=== PATIENT | male | born 1960 | race Caucasian/White ===

== ENCOUNTER 2017-05-31 06:24 | Day surgery (SDC) | payer OTHER ==
[2017-05-25 13:29] VITALS: BMI 28.1
[2017-05-31] MEDS ORDERED: SUCCINYLCHOLINE CHLORIDE 200 MG/10 ML VIAL ONE (06:42)
[2017-05-31] MEDS ORDERED: PROPOFOL 20 ML ONE ×2 (06:42)
[2017-05-31] MEDS ORDERED: MIDAZOLAM HCL 2 MG/2 ML SINGLE DOSE VIAL ONE (06:42)
[2017-05-31] MEDS ORDERED: DEXAMETHASONE SOD PHOSPHATE 4 MG/1 ML VIAL ONE (06:43)
[2017-05-31] MEDS ORDERED: ONDANSETRON 4 MG/2 ML VIAL ONE (06:43)
[2017-05-31] MEDS ORDERED: ceFAZolin SODIUM 1 GM VIAL ONE (06:43)
[2017-05-31] MEDS ORDERED: MEPIVACAINE HCL/PF 1% 30 ML VIAL ONE (06:56)
[2017-05-31] MEDS ORDERED: LIDOCAINE 1% P/F 10 MG/ML VIAL ONE (06:56)
[2017-05-31] MEDS ORDERED: ROPIVACAINE HCL 0.5% 30ML VIAL ONE (06:57)
--- NOTE | 2017-05-31 07:20 | HP ---
History & Physical Update - History History: No Change - Physical Physical: No Change - Assessment Assessment: No Change - Plan Plan: No Change
[2017-05-31] MEDS ORDERED: PHENYLEPHRINE HCL 10 MG/1 ML SINGLE DOSE VIAL ONE (08:41)
[2017-05-31] MEDS ORDERED: oxyCODONE HCL 5 MG TABLET PO PRN (10:16)
[2017-05-31] MEDS ORDERED: KETOROLAC TROMETHAMINE 30 MG/1 ML VIAL IVPUSH ONE (10:17)
--- NOTE | 2017-05-31 10:17 | SURG ---
Surgery Bulk Filler Note Bulk Filler: Estefany Ventura PA-C Date of Service: 05/31/17 Diagnosis: Right rotator cuff tear, Biceps tear Procedure: Right shoulder arthroscopy with rotator cuff repair, sub acrominal decompression , biceps tenodesis and subscapularis repair. I was present for the entirety of the operative procedure. For further detail, please refer to operative report. Visit type - Case Type Case Type: Scheduled Admission - Emergency Emergency Visit: No - New patient This patient is new to me today: Yes Date on this admission: 05/31/17
--- NOTE | 2017-05-31 10:18 | OP ---
Operative Note - Note: Operative Date: 05/31/17 Pre-Operative Diagnosis: r sh tear Operation: scope Estimated Blood Loss (mls): 10 Operative Report Dictated: Yes
[2017-05-31] MEDS ORDERED: LACTATED RINGERS SOLUTION 1,000 ML IV SCH (10:30)
[2017-05-31 11:29] VITALS: TEMP 98
[2017-05-31] MEDS ORDERED: CEFAZOLIN 1 GM/D5W 50 ML ONE (11:55)
[2017-05-31] MEDS ORDERED: CEFAZOLIN 1 GM/D5W 50 ML IVPB SCH ×2 (12:00)
[2017-05-31 14:13] VITALS: BP 124/73; PULSE 71
--- NOTE | 2017-06-01 09:18 | OP ---
DATE OF OPERATION: 05/31/2017 SURGEON: Carmina Davalos MD JOB ORDER CLERK: YOJANA Allison ANESTHESIA: General with block, . ANTIBIOTIC: Kefzol 2 g. COMPLICATIONS: None. WOUND TYPE: Clean. SPECIMENS: Shavings. DRAINS: None. BLOOD LOSS: Minimal. FINDINGS: See text. PREOPERATIVE DIAGNOSIS: Internal derangement of right shoulder. POSTOPERATIVE DIAGNOSIS: Massive rotator cuff tear, anterior capsular avulsion with subscapularis biceps tear, labral tear, AC arthritis, impingement of the subacromial space. PROCEDURE PERFORMED: Rotator cuff repair, anterior capsular repair with subscapularis, biceps tenodesis, labrectomy, acromioclavicular arthroplasty, arthroscopic subacromial decompression. INDICATIONS: The patient has sustained a severe injury to the shoulder that did not improve despite conservative measures. Risks and benefits were able to be explained and understood. MRI was positive. He is here for arthroscopic evaluation and treatment. DESCRIPTION OF PROCEDURE: The patient was brought to the operating room, placed on the table in the beach-chair position. Proper time-out was performed. The right shoulder was prepped and draped with Betadine. Solution antibiotics were given. EUA was remarkable for multidirectional instability. Getting into the shoulder, all the above findings were noted. In addition, he had a degenerative GLAD lesion. However, there was no instability due to this, and there was no drive-through sign, and he had articular surface changes, which were grade 3-4. This was debrided. The subscapularis was torn. The anterior capsule was torn off the humeral neck. There were high grade changes in the biceps. We could look right up into the subacromial space through the rotator cuff tear. There was degenerative tearing posteriorly. Labrectomy: We did a large labrectomy for tears posteriorly, inferiorly, and anteriorly, which were interposing and likely symptomatic explaining the high-speed hannah. Biceps Tenodesis: The biceps was detached from the supraglenoid tubercle. We had externally created an 8-mm socket, debrided the biceps, opened the groove entirely, placed the biceps within the socket, tenodesed it here securely using the 8-mm Tenodesis Screw supplied by [employer]. Anterior Capsular Repair: Getting back into the shoulder, we used a portal of Lawrence and an anterolateral portal, and had excellent access to the subscapularis, which was completely torn. We debrided in both sides, and we had good access. We also had tearing of the capsule below this off the humeral neck. This was a proximal HAGL lesion. We prepared the bony surfaces using a high-speed shaver, and then repaired here using Nautilus anchors. We used the Q 1.8 by [employer] and had an excellent repair, both the capsule and the subscapularis onto the neck and the prepared lesser tuberosity respectively. We had excellent stability here. Rotator Cuff Repair: We had a large displaced tear of the rotator cuff involving the entire supra- and infraspinatus. We debrided back to good tissue. This was an L posterior tear. We prepared the juxta-articular surface of the greater tuberosity at the punctate bleeding bone. We now placed our medial row anchor which was a triple-loaded Regenerex 5.5. We passed posterior mattress, middle simple, and an anterior mattress. We then tied these on securely. We then did a double second row using two 4.5 via [employer]. We were pleased with cuff contact pressure and stability. Acromioclavicular arthroplasty. We now performed a formal arthroscopic Praveen procedure resecting the entire distal aspect of the clavicle. The outer 11 mm were taken using bone instruments. Arthroscopic Subacromial Decompression: We now took down the CA ligament, did a bi-planing acromioplasty for a significant anteromedial hook. This smoothed things out completely. We checked the cuff. It was good. We had good stability. We had full passive rate. We closed the portals with Monocril. Dressing was applied. He returned to Recovery. He will be discharged to home with shoulder sheath and Percocet for pain. I will see him in the office for followup in 1 week. CARMINA DAVALOS M.D. [id number]
--- NOTE | 2017-06-01 16:41 | PATH ---
Surgical Pathology Report Patient Name: SHANIQUE MCKAY [facility]. Rec. #: [id number] /Age/Gender: 1960 (Age: 56) / M Account: [id number] Location: [facility] AMBULATORY Taken: 05/31/2017 Received: 05/31/2017 Reported: 06/01/2017 Physicians: Anjel Paris M.D. Specimen(s) Received RIGHT SHOULDER SHAVINGS Clinical History Right shoulder rotator cuff repair Final Diagnosis SHOULDER SHAVINGS, RIGHT, SUBACROMIAL DECOMPRESSION, AND ROTATOR CUFF REPAIR: BENIGN FIBROCARTILAGINOUS TISSUE, SYNOVIUM, AND BONE. Electronically Signed Cindy Sol M.D. Gross Description Received in formalin, labeled "right shoulder shavings," is a 4.0 x 3.2 x 0.3 cm. aggregate of crowe-yellow soft tissue fragments. A uniforms sales representative portion is submitted in one cassette. /05/31/201705/31/2017
== END 2017-05-31 14:14 | disposition home or self-care (01) ==
LOC: FASU 06:24
PROVIDERS: ATTEND Orthopaedic Surgery
PROC: 0LS14ZZ Reposition Right Shoulder Tendon, Percutaneous Endoscopic Approach (ICD-10-PCS; 2017-05-31)
PROC: 0RNJ4ZZ Release Right Shoulder Joint, Percutaneous Endoscopic Approach (ICD-10-PCS; 2017-05-31)
PROC: 0RBJ4ZZ Excision of Right Shoulder Joint, Percutaneous Endoscopic Approach (ICD-10-PCS; 2017-05-31)
PROC: 0LB14ZZ Excision of Right Shoulder Tendon, Percutaneous Endoscopic Approach (ICD-10-PCS; principal; 2017-05-31 08:29)
DX: M75.121 Complete rotator cuff tear or rupture of right shoulder, not specified as traumatic (principal); M66.821 Spontaneous rupture of other tendons, right upper arm; M24.111 Other articular cartilage disorders, right shoulder; M13.811 Other specified arthritis, right shoulder; M75.41 Impingement syndrome of right shoulder
CPT/HCPCS: 88304-TC

== ENCOUNTER 2017-09-19 15:27 | Emergency (ER) | payer BC, OTHER ==
[2017-09-19 15:46] VITALS: BP 169/98; PULSE 60; TEMP 98.7; BMI 27.9
--- NOTE | 2017-09-19 15:59 | PDOC ---
History of Present Illness - General History Source: Patient Exam Limitations: No Limitations - History of Present Illness Initial Comments: 09/19/17 16:19 56m WITH PMH of htn and GERD, who presents to the emergency department with, two hours of epigastric pain. As per patient he ate spicy ceviche when his symptoms onset. He describes his pain as 10/10 burning sensation moving upward. He reports using his GERD medication, without relief. Secondary to her symptoms, he reports nausea. The patient reports this is not his first episode. He had similar symptoms a few years ago. He denies any recent fevers, chills, headache or dizziness. He denies any recent diarrhea or constipation. He denies any recent chest pain or shortness of breath. He denies any recent dysuria, frequency, urgency or hematuria. Allergies: NKA Social History: Nonsmoker. Denies EtOH use and recreational drug use. Primary Care Physician: Dr. Kim Jaime <Joe Cox - Last Filed: 09/19/17 19:22> <Celeste Iglesias - Last Filed: 09/19/17 19:53> - General Chief Complaint: Pain, Acute Stated Complaint: ABD PAIN Time Seen by Provider: 09/19/17 15:58 Past History - Past Medical History Anemia: No Asthma: No Cancer: No Cardiac Disorders: No CVA: No COPD: No CHF: No Dementia: No Diabetes: No GI Disorders: No Disorders: No HTN: Yes Hypercholesterolemia: Yes Liver Disease: No Seizures: No Thyroid Disease: No - Surgical History Abdominal Surgery: No Appendectomy: No Cardiac Surgery: No Cholecystectomy: No Lung Surgery: No Neurologic Surgery: No Orthopedic Surgery: Yes (LUMBAR DISCECTOMY 1986) - Suicide/Smoking/Psychosocial Hx Smoking History: Never smoked Have you smoked in the past 12 months: No Hx Alcohol Use: No Substance Use Type: None <Joe Cox - Last Filed: 09/19/17 19:22> <Celeste Iglesias - Last Filed: 09/19/17 19:53> - Past Medical History Allergies/Adverse Reactions: Allergies Allergy/AdvReac Type Severity Reaction Status Date / Time No Known Drug Allergies Allergy Verified 09/19/17 15:44 Home Medications: Ambulatory Orders Cholecalciferol (Vitamin D3) [Vitamin D3] 5,000 unit PO DAILY 05/25/17 Lisinopril 10 mg PO DAILY 05/25/17 Multivitamins [Tab-A-Vit -] 1 tab PO DAILY 05/25/17 Simvastatin 20 mg PO HS 05/25/17 Review of Systems - Review of Systems Able to Perform ROS?: Yes Is the patient limited Divehi proficient: No Constitutional: No: Symptoms Reported HEENTM: No: Symptoms Reported Respiratory: No: Symptoms reported Cardiac (ROS): No: Symptoms Reported ABD/GI: Yes: See HPI : No: Symptoms Reported Musculoskeletal: No: Symptoms Reported Integumentary: No: Symptoms Reported Neurological: No: Symptoms reported All Other Systems: Reviewed and Negative <Joe Cox - Last Filed: 09/19/17 19:22> *Physical Exam - Vital Signs Last Vital Signs Temp Pulse Resp BP Pulse Ox 98.7 F 60 19 169/98 99 09/19/17 15:44 09/19/17 15:44 09/19/17 15:44 09/19/17 15:44 09/19/17 15:44 - Physical Exam General Appearance: Yes: Nourished, Appropriately Dressed, Moderate Distress HEENT: positive: EOMI, LEONARDO, Normal ENT Inspection Respiratory/Chest: positive: Lungs Clear, Normal Breath Sounds. negative: Chest Tender, Respiratory Distress Gastrointestinal/Abdominal: positive: Normal Bowel Sounds, Tender (URQ and epigastric), Flat, Soft Extremity: positive: Normal Capillary Refill, Normal Inspection, Normal Range of Motion Integumentary: positive: Normal Color, Dry, Warm Neurologic: positive: Fully Oriented, Alert, Normal Mood/Affect <Joe Cox - Last Filed: 09/19/17 19:22> - Vital Signs Last Vital Signs Temp Pulse Resp BP Pulse Ox 98.7 F 60 19 169/98 99 09/19/17 15:44 09/19/17 15:44 09/19/17 15:44 09/19/17 15:44 09/19/17 15:44 <Celeste Iglesias - Last Filed: 09/19/17 19:53> ED Treatment Course - LABORATORY CBC & Chemistry Diagram: 09/19/17 16:25 09/19/17 16:25 <Joe Cox - Last Filed: 09/19/17 19:22> - LABORATORY CBC & Chemistry Diagram: 09/19/17 16:25 09/19/17 16:25 - ADDITIONAL ORDERS Additional order review: Laboratory Results 09/19/17 09/19/17 16:25 16:25 Sodium 136 Potassium 4.9 Chloride 103 Carbon Dioxide 26 Anion Gap 7 L BUN 10 Creatinine 0.9 Creat Clearance w eGFR > 60 Random Glucose 144 H Calcium 9.5 Total Bilirubin 0.8 AST 37 ALT 52 Alkaline Phosphatase 98 Creatine Kinase 119 Troponin I < 0.02 Total Protein 8.0 Albumin 4.6 Lipase 202 09/19/17 16:25 RBC 5.31 MCV 88.3 MCHC 33.6 RDW 12.9 MPV 7.5 Neutrophils % 70.4 Lymphocytes % 23.2 Monocytes % 5.0 Eosinophils % 0.6 Basophils % 0.8 - Medications Given in the ED: ED Medications Discontinued Medications Generic Name Dose Route Start Last Admin Trade Name Freq PRN Reason Stop Dose Admin Al Hydroxide/Mg Hydroxide 30 ml 09/19/17 16:25 09/19/17 17:05 Mylanta Oral Suspension - PO 09/19/17 16:26 30 ml ONCE ONE Administration Sodium Chloride 1,000 mls @ 1,000 mls/hr 09/19/17 16:07 09/19/17 16:26 Normal Saline - IV 09/19/17 17:06 1,000 mls/hr ASDIR STA Administration Famotidine 20 mg in 12 mls @ 144 mls/hr 09/19/17 16:25 09/19/17 17:05 Pepcid 20 Mg/12 Ml Push IVPUSH 09/19/17 16:29 144 mls/hr NOW ONE Administration Lidocaine HCl 20 ml 09/19/17 16:27 09/19/17 17:05 Xylocaine 2% Viscous Oral - MM 09/19/17 16:28 20 ml ONCE ONE Administration Morphine Sulfate 2 mg 09/19/17 17:23 09/19/17 17:27 Morphine Injection - IVPUSH 09/19/17 17:24 2 mg ONCE ONE Administration Ondansetron HCl 4 mg 09/19/17 16:07 09/19/17 16:26 Zofran Injection IVPUSH 09/19/17 16:08 4 mg ONCE ONE Administration Pantoprazole Sodium 40 mg 09/19/17 16:06 09/19/17 16:25 Protonix Iv IVPUSH 09/19/17 16:07 40 mg ONCE ONE Administration <Celeste Iglesias - Last Filed: 09/19/17 19:53> Medical Decision Making - Medical Decision Making Gall stones are present. No definite sign of inflammation. No biliary dilation seen. Liver shows no definite focal mass. The liver is echogenic compatible with steatosis. Right kidney shows no hydronephrosis. Portal vein shows unremarkable venous waveform with hepatopedal flow. EKG: sinus estiven at 47, nl axis, nl interval, t wave inversions III, no other acute findings Patient to receive surgery consult, Signed out to Dr. Rojas <Joe Cox - Last Filed: 09/19/17 19:22> - Medical Decision Making 09/19/17 19:22 Patient Name: SHANIQUE MCKAY PRELIMINARY REPORT FROM IMAGING SORT SUPERVISOR EXAM: Ultrasound abdomen, limited and Duplex scan abdomen DATE: 2017-09-19 17:30:29 IMAGES: 39 HISTORY: Gallstones REPORT: Gall stones are present. No definite sign of inflammation. No biliary dilation seen. Liver shows no definite focal mass. The liver is echogenic compatible with steatosis. Right kidney shows no hydronephrosis. Portal vein shows unremarkable venous waveform with hepatopedal flow. THIS DOCUMENT HAS BEEN ELECTRONICALLY SIGNED 09/19/17 19:52 We discussed the GB situation with the patient, the importance of low fat diet. The need for GI and surgical outpatient follow up. The fact that he may have gastritis and requires an EGD and that the omeprazole he already has can be suppolemented with tums/maalox etc. <Celeste Iglesias - Last Filed: 09/19/17 19:53> *DC/Admit/Observation/Transfer <Joe Cox - Last Filed: 09/19/17 19:22> <Celeste Iglesias - Last Filed: 09/19/17 19:53> Diagnosis at time of Disposition: Nephrolithiasis - Referrals Referrals: Kim Jaime [Primary Care Provider] -
[2017-09-19] MEDS ORDERED: PANTOPRAZOLE SODIUM 40 MG VIAL IVPUSH ONE (16:06)
[2017-09-19] MEDS ORDERED: ONDANSETRON 4 MG/2 ML VIAL IVPUSH ONE (16:07)
[2017-09-19] MEDS ORDERED: SODIUM CHLORIDE 1,000 ML IV STA (16:07)
--- NOTE | 2017-09-19 16:08 | PDOC ---
Attending Attestation - [facility] HPI: 09/19/17 16:53 The patient is a 56 year old male, with a significant past medical history of hypertension and GERD, who presents to the emergency department with, two hours of epigastric pain. As per patient he ate spicy ceviche when his symptoms onset. He describes his pain as 10/10 burning sensation moving upward. He reports using his GERD medication, without relief. Secondary to her symptoms, he reports nausea. The patient reports this is not his first episode. He had similar symptoms a few years ago. He denies any recent fevers, chills, headache or dizziness. He denies any recent diarrhea or constipation. He denies any recent chest pain or shortness of breath. He denies any recent dysuria, frequency, urgency or hematuria. Allergies: NKA Social History: Nonsmoker. Denies EtOH use and recreational drug use. Primary Care Physician: Dr. Kim Jaime - Physicial Exam PE: 09/19/17 16:43 Constitutional: +Uncomfortable appearing. Awake, alert, oriented. Head: Normocephalic. Atraumatic Eyes: PERRL. EOMI. Conjunctivae are not pale. ENT: Mucous membranes are moist and intact. Posterior pharynx without exudate or erythema. Uvula midline. Neck: Supple. Full ROM. No lymphadenopathy. Cardiovascular: Regular rate. Regular rhythm. S1, S2 regular. Distal pulses are 2+ and symmetric. Pulmonary/Chest: No evidence of respiratory distress. Clear to auscultation bilaterally No wheezing, rales or rhonchi. Abdominal: +Significant tenderness in the epigastric region. Soft and non- distended. No rebound, guarding or rigidity. No organomegaly. No palpable masses. Good bowel sounds. Back: No CVA tenderness. Musculoskeletal: No edema. No cyanosis. No clubbing. Full range of motion in all extremities. Nocalf tenderness. Radial/pedal pulses are intact and 2+ bilaterally Skin: Skin is warm and dry. No petechiae. No purpura. Neurological: Alert and oriented to person, place, and time. Cranial nerves II -XII are grossly intact. Normal speech. Strength is grossly symmetric. No sensory deficits. Psychiatric: Good eye contact. Normal interaction, affect and behavior. - Medical Decision Making EXAM: Ultrasound abdomen, limited and Duplex scan abdomen Gall stones are present. No definite sign of inflammation. No biliary dilation seen. Liver shows no definite focal mass. The liver is echogenic compatible with steatosis. Right kidney shows no hydronephrosis. Portal vein shows unremarkable venous waveform with hepatopedal flow. Read by: Jatin Richter MD <Nasreen Shipley - Last Filed: 09/19/17 19:04> - Resident Resident Name: Joe Cox - ED Attending Attestation I have performed the following: I have examined & evaluated the patient, The case was reviewed & discussed with the resident, I agree w/resident's findings & plan, Exceptions are as noted - Medical Decision Making 09/19/17 16:08 I, Dr. Ros Castillo DO, attest that this document has been prepared under my direction and personally reviewed by me in its entirety. I further attest, that it accurately reflects all work, treatment, procedures and medical decision -making performed by me. 09/19/17 16:50 a/p: 56yo male with epigastric pain and GERD symptoms -hx of GERD and hx of PUD and H.Pylori -unsure who his GI specialist was years ag -will check labs, ekg, medicate with GI meds -lipase -will monitor and reassess 09/19/17 19:16 pt with gallstones on ultrasound - suspect symptomatic willie will discuss with surgery pt will be signed out to the oncoming ED physician pending further eval and discussion with surgery <Ros Castillo - Last Filed: 09/19/17 19:22> Heart Score/ECG Review - ECG Intrepretation Comment:: 09/19/17 17:13 sinus estiven at 47, nl axis, nl interval, t wave inversions III, no other acute findings <Ros Castlilo - Last Filed: 09/19/17 19:22> Attestations - Attestations 09/19/17 16:43 Documentation prepared by Nasreen Shipley, acting as nurses medical assistants phlebotomists for Ros Castillo DO. <Nasreen Shipley - Last Filed: 09/19/17 19:04>
[2017-09-19] MEDS ORDERED: ONDANSETRON 4 MG/2 ML VIAL ONE (16:13)
[2017-09-19] MEDS ORDERED: PANTOPRAZOLE SODIUM 40 MG VIAL ONE (16:13)
[2017-09-19] MEDS ORDERED: FAMOTIDINE IV 20 MG/12 ML VIAL IVPUSH ONE (16:25)
[2017-09-19] MEDS ORDERED: MAG HYDROX/AL HYDROX/SIMETH 30 ML UNIT-DOSE CUP PO ONE (16:25)
[2017-09-19] MEDS ORDERED: LIDOCAINE VISCOUS 2% ORAL/TOP 20 ML UNIT-DOSE CUP MM ONE (16:27)
[2017-09-19] MEDS ORDERED: LIDOCAINE VISCOUS 2% ORAL/TOP 20 ML UNIT-DOSE CUP ONE (16:31)
[2017-09-19] MEDS ORDERED: FAMOTIDINE 20 MG/50 ML IVPB 20 MG/50 ML MG IVPB ONE (16:32)
[2017-09-19] MEDS ORDERED: MAG HYDROX/AL HYDROX/SIMETH 30 ML UNIT-DOSE CUP ONE (16:32)
[2017-09-19 16:33] LABS: BASO % 0.8 % (0-2.0); EOS % 0.6 % (0-4.5); HEMATOCRIT 46.9 % (35.4-49); HEMOGLOBIN 15.7 GM/dL (11.7-16.9); LYMPH % 23.2 % (8-40); MCH 29.6 pg (25.7-33.7); MCHC 33.6 g/dl (32.0-35.9); MEAN CELL VOLUME 88.3 fl (80-96); MEAN PLT VOLUME 7.5 fl (7.5-11.1); NEUT % 70.4 % (42.8-82.8); PLATELET COUNT 322 K/MM3 (134-434); RBC 5.31 M/mm3 (4.00-5.60); RDW 12.9 % (11.9-15.9); WHITE BLOOD COUNT 11.6 K/mm3 (4.0-10.0)
[2017-09-19 17:02] LABS: ALBUMIN 4.6 g/dl (3.4-5.0); ALK PHOS 98 U/L (45-117); ANION GAP 7 (8-16); BILIRUBIN,TOTAL 0.8 mg/dL (0.2-1.0); BLOOD UREA NITROGEN 10 mg/dL (7-18); CALCIUM 9.5 mg/dL (8.5-10.1); CHLORIDE 103 mmol/L (98-107); CO2 26 mmol/L (21-32); CREATININE 0.9 mg/dL (0.7-1.3); GLUCOSE,RANDOM 144 mg/dL (74-106); POTASSIUM 4.9 mmol/L (3.5-5.1); SGOT/AST 37 U/L (15-37); SGPT/ALT 52 U/L (12-78); SODIUM 136 mmol/L (136-145)
[2017-09-19 17:03] LABS: LIPASE 202 U/L (73-393)
[2017-09-19] MEDS ORDERED: morphine CARPU-JECT 2 MG/1 ML DISP.SYRIN IVPUSH ONE (17:23)
[2017-09-19] MEDS ORDERED: MORPHINE SULFATE 10 MG/1 ML *VIAL ONE (17:27)
[2017-09-19] MEDS ORDERED: KETOROLAC TROMETHAMINE 30 MG/1 ML VIAL IVPUSH ONE (19:32)
[2017-09-19] MEDS ORDERED: KETOROLAC TROMETHAMINE 30 MG/1 ML VIAL ONE (20:03)
--- NOTE | 2017-09-19 20:29 | PDOC ---
*Physical Exam - Vital Signs Last Vital Signs Temp Pulse Resp BP Pulse Ox 98.7 F 60 19 169/98 99 09/19/17 15:44 09/19/17 15:44 09/19/17 15:44 09/19/17 15:44 09/19/17 15:44 ED Treatment Course - LABORATORY CBC & Chemistry Diagram: 09/19/17 16:25 09/19/17 16:25 - ADDITIONAL ORDERS Additional order review: Laboratory Results 09/19/17 09/19/17 16:25 16:25 Sodium 136 Potassium 4.9 Chloride 103 Carbon Dioxide 26 Anion Gap 7 L BUN 10 Creatinine 0.9 Creat Clearance w eGFR > 60 Random Glucose 144 H Calcium 9.5 Total Bilirubin 0.8 AST 37 ALT 52 Alkaline Phosphatase 98 Creatine Kinase 119 Troponin I < 0.02 Total Protein 8.0 Albumin 4.6 Lipase 202 09/19/17 16:25 RBC 5.31 MCV 88.3 MCHC 33.6 RDW 12.9 MPV 7.5 Neutrophils % 70.4 Lymphocytes % 23.2 Monocytes % 5.0 Eosinophils % 0.6 Basophils % 0.8 - Medications Given in the ED: ED Medications Discontinued Medications Generic Name Dose Route Start Last Admin Trade Name Freq PRN Reason Stop Dose Admin Al Hydroxide/Mg Hydroxide 30 ml 09/19/17 16:25 09/19/17 17:05 Mylanta Oral Suspension - PO 09/19/17 16:26 30 ml ONCE ONE Administration Sodium Chloride 1,000 mls @ 1,000 mls/hr 09/19/17 16:07 09/19/17 16:26 Normal Saline - IV 09/19/17 17:06 1,000 mls/hr ASDIR STA Administration Famotidine 20 mg in 12 mls @ 144 mls/hr 09/19/17 16:25 09/19/17 17:05 Pepcid 20 Mg/12 Ml Push IVPUSH 09/19/17 16:29 144 mls/hr NOW ONE Administration Ketorolac Tromethamine 30 mg 09/19/17 19:32 09/19/17 20:06 Toradol Injection - IVPUSH 09/19/17 19:33 30 mg ONCE ONE Administration Lidocaine HCl 20 ml 09/19/17 16:27 09/19/17 17:05 Xylocaine 2% Viscous Oral - MM 09/19/17 16:28 20 ml ONCE ONE Administration Morphine Sulfate 2 mg 09/19/17 17:23 09/19/17 17:27 Morphine Injection - IVPUSH 09/19/17 17:24 2 mg ONCE ONE Administration Ondansetron HCl 4 mg 09/19/17 16:07 09/19/17 16:26 Zofran Injection IVPUSH 09/19/17 16:08 4 mg ONCE ONE Administration Pantoprazole Sodium 40 mg 09/19/17 16:06 09/19/17 16:25 Protonix Iv IVPUSH 09/19/17 16:07 40 mg ONCE ONE Administration Medical Decision Making - Medical Decision Making 09/19/17 20:28 Care taken over from Dr. Cox. 09/19/17 20:44 Patient noted to have biliary colic / gall stones. Patient reports resolution of symptoms with 30mg toradol - would like to go home. Information given for elective outpatient surgery as well as triggers of pain and foods to avoid. Patient verbalized understanding and will f/u outpatient. Discharging to home. *DC/Admit/Observation/Transfer Diagnosis at time of Disposition: Nephrolithiasis - Discharge Dispostion Disposition: HOME - Prescriptions Prescriptions: Ibuprofen [Motrin -] 600 mg PO TID #21 tablet Ondansetron HCl [Zofran] 4 mg PO TID PRN #21 tablet PRN Reason: Nausea - Referrals Referrals: Kim Jaime [Primary Care Provider] - Gurmeet Templeton MD [Staff Physician] - - Patient Instructions Printed Discharge Instructions: DI for Gallstones, DI for Biliary Colic Additional Instructions: Please follow-up with general surgery as discussed for elective gall bladder removal. A prescription has been sent to your pharmacy. Return to ER if any pain or fever not controlled with medications provided. Print Language: ICELANDIC - Post Discharge Activity
--- NOTE | 2017-09-20 23:20 | EKG ---
Test Reason : Blood Pressure : / mmHG Vent. Rate : 047 BPM Atrial Rate : 047 BPM P-R Int : 158 ms QRS Dur : 104 ms QT Int : 502 ms P-R-T Axes : 023 -04 -06 degrees QTc Int : 444 ms SINUS BRADYCARDIA NONSPECIFIC T WAVE ABNORMALITY ABNORMAL ECG WHEN COMPARED WITH ECG OF 08-FEB-2004 13:04, VENT. RATE HAS DECREASED BY 26 BPM T WAVE VARIATION Confirmed by ANDREW DUNN MD ([id number]) on 09/20/2017 11:20:17 PM Referred By: Confirmed By:ANDREW DUNN MD
== END 2017-09-19 21:07 | disposition home or self-care (01) ==
LOC: JER 15:27
PROC: 3E033NZ Introduction of Analgesics, Hypnotics, Sedatives into Peripheral Vein, Percutaneous Approach (ICD-10-PCS; principal; 2017-09-19)
PROC: 3E0333Z Introduction of Anti-inflammatory into Peripheral Vein, Percutaneous Approach (ICD-10-PCS; 2017-09-19)
PROC: 3E033GC Introduction of Other Therapeutic Substance into Peripheral Vein, Percutaneous Approach (ICD-10-PCS; 2017-09-19)
PROC: 3E033GC Introduction of Other Therapeutic Substance into Peripheral Vein, Percutaneous Approach (ICD-10-PCS; 2017-09-19)
DX: K80.20 Calculus of gallbladder without cholecystitis without obstruction (principal); I10 Essential (primary) hypertension; E78.00 Pure hypercholesterolemia, unspecified; K21.9 Gastro-esophageal reflux disease without esophagitis
CPT/HCPCS: 36415; 76705-TC; 80053; 82550; 83690; 84484; 85025; 93005; 93010; 99283-25

== ENCOUNTER 2018-01-24 07:31 | Emergency (ER) | payer BC ==
[2018-01-24] MEDS ORDERED: ASPIRIN 81 MG CHEWABLE TABLETS PO ONE (07:48)
--- NOTE | 2018-01-24 07:56 | PDOC ---
History of Present Illness - General Chief Complaint: Chest Pain Stated Complaint: CHEST PAIN,NUMBENESS Time Seen by Provider: 01/24/18 07:38 History Source: Patient, Family Exam Limitations: No Limitations - History of Present Illness Initial Comments: 01/24/18 07:56 Pt. is a 57 y/o M with PMH of HTN, HLD, GERD, who presents to the ED c/o chest pain for 30 minutes prior to arrival. Pt. states he was drinking his morning coffee and watching TV when the pain started. He states that it feels more like a pressure in the middle to L side of his chest. Also endorses numbness and tingling to the L jaw and L arm. Did not take aspirin this morning. Pt. states that nothing makes the pain better or worse. Denies fevers, chills, SOB, difficulty breathing, palpitations, edema, n/v/d. Past History - Travel Traveled outside of the country in the last 30 days: No Close contact w/someone who was outside of country & ill: No - Past Medical History Allergies/Adverse Reactions: Allergies Allergy/AdvReac Type Severity Reaction Status Date / Time No Known Drug Allergies Allergy Verified 01/24/18 08:08 Home Medications: Ambulatory Orders Cholecalciferol (Vitamin D3) [Vitamin D3] 5,000 unit PO DAILY 05/25/17 Lisinopril 10 mg PO DAILY 05/25/17 Multivitamins [Tab-A-Vit -] 1 tab PO DAILY 05/25/17 Simvastatin 20 mg PO HS 05/25/17 Ibuprofen [Motrin -] 600 mg PO TID #21 tablet 09/19/17 Ondansetron HCl [Zofran] 4 mg PO TID PRN #21 tablet 09/19/17 Anemia: No Asthma: No Cancer: No Cardiac Disorders: No CVA: No COPD: No CHF: No Dementia: No Diabetes: No GI Disorders: No Disorders: No HTN: Yes Hypercholesterolemia: Yes Liver Disease: No Seizures: No Thyroid Disease: No - Surgical History Abdominal Surgery: No Appendectomy: No Cardiac Surgery: No Cholecystectomy: No Lung Surgery: No Neurologic Surgery: No Orthopedic Surgery: Yes (LUMBAR DISCECTOMY 1986) - Immunization History Immunization Up to Date: Yes - Suicide/Smoking/Psychosocial Hx Smoking History: Never smoked Have you smoked in the past 12 months: No Hx Alcohol Use: No Substance Use Type: None Review of Systems - Review of Systems Able to Perform ROS?: Yes Comments:: 01/24/18 08:54 CONSTITUTIONAL: Absent: fever, chills, diaphoresis, generalized weakness, malaise, loss of appetite HEENT: Absent: rhinorrhea, nasal congestion, throat pain, throat swelling, difficulty swallowing, mouth swelling, ear pain, eye pain, visual Changes CARDIOVASCULAR: Present: chest pain, jaw pain, arm numbness Absent: loss of consciousness, palpitations, irregular heart rate, peripheral edema RESPIRATORY: Absent: cough, shortness of breath, dyspnea with exertion, orthopnea, wheezing, stridor, hemoptysis GASTROINTESTINAL: Absent: abdominal pain, abdominal distension, nausea, vomiting, diarrhea, constipation, melena, hematochezia GENITOURINARY: Absent: dysuria, frequency, urgency, hesitancy, hematuria, flank pain, genital pain MUSCULOSKELETAL: Absent: myalgia, arthralgia, joint swelling SKIN: Absent: rash, itching, pallor HEMATOLOGIC/IMMUNOLOGIC: Absent: easy bleeding, easy bruising, lymphadenopathy, frequent infections ENDOCRINE: Absent: unexplained weight gain, unexplained weight loss, heat intolerance, cold intolerance NEUROLOGIC: Absent: headache, focal weakness or paresthesias, dizziness, unsteady gait, seizure, mental status changes, bladder or bowel incontinence PSYCHIATRIC: Absent: anxiety, depression, suicidal or homicidal ideation, hallucinations. Is the patient limited [place] proficient: No *Physical Exam - Physical Exam Comments: 01/24/18 09:26 GENERAL: Well developed, well nourished. Awake and alert. No acute distress. Appears anxious. HEENT: Normocephalic, atraumatic. PERRLA, EOMI. No conjunctival pallor. Sclera are non- icteric. Moist mucous membranes. Oropharynx is clear. NECK: Supple. Full ROM. No JVD. Carotid pulses 2+ and symmetric, without bruits. No thyromegaly. No lymphadenopathy. CARDIOVASCULAR: Regular rate and rhythm. No murmurs, rubs, or gallops. Distal pulses are 2+ and symmetric. PULMONARY: No evidence of respiratory distress. Lungs clear to auscultation bilaterally. No wheezing, rales or rhonchi. ABDOMINAL: Soft. Non-tender. Non-distended. No rebound or guarding. No organomegaly. Normoactive bowel sounds. MUSCULOSKELETAL Normal range of motion at all joints. No bony deformities or tenderness. No CVA tenderness. EXTREMITIES: No cyanosis. No clubbing. No edema. No calf tenderness. SKIN: Warm and dry. Normal capillary refill. No rashes. No jaundice. NEUROLOGICAL: Alert, awake, appropriate. Cranial nerves 2-12 intact. No deficits to light touch and temperature in face, upper extremities and lower extremities. No motor deficits in the in face, upper extremities and lower extremities. Normoreflexic in the upper and lower extremities. Normal speech. Toes are down- going bilaterally. Gait is normal without ataxia. PSYCHIATRIC: Cooperative. Good eye contact. Appropriate mood and affect. Heart Score/ECG Review - History History: Slightly suspicious - Electrocardiogram EKG: Normal - Age Age: 45-65 - Risk Factors Risk Factors Heart Score: Yes Hx Hypercholesterolemia, Yes Hx Hypertension, Yes Hx Diabetes Based on the list above the patient has:: >/=3 risk factors or Hx atherosclerotic disease - Troponin Troponin: </= normal limit - Score Heart Score - Total: 3 ED Treatment Course - LABORATORY CBC & Chemistry Diagram: 01/24/18 08:11 01/24/18 08:11 Medical Decision Making - Medical Decision Making 01/24/18 09:26 Patient is a 57-year-old male past medical history of hypertension, hyperlipidemia, GERD who presents to the emergency department for chest pain, jaw tingling and left arm tingling starting 30 minutes prior to arrival. Exam is benign, no reproducible chest pain. Patient states last stress test was in September of last year with no findings. [facility] for similar symptoms and family reports blood thinner use at that time, but denies catheterization. 1.labs, urine 2.EKG, chest x-ray 3.aspirin 4.reevaluate EKG: Rate 75, NSR. Normal axis, normal intervals. No acute ST-wave changes. 01/24/18 12:57 2 sets of troponins are negative at this time. Lab work is unremarkable. Patient is currently chest pain-free and denies any numbness in the arm at this time. Patient states he feels better and would like to go home. Explained to patient that given his history and presentation would recommend observation for further cardiac risk stratification. Patient states that he needs to leave because he is going on vacation tomorrow and will follow up with his modeler in [facility]. Also states he'll follow-up when he returns with a modeler [place] the states. Strict return precautions given. Patient understands all discharge instructions and all questions were answered. Referral for Dr. Parker Courtney cardiology given. Repeat EKG: Rate 58 bpm, normal sinus rhythm, normal intervals, normal axis, no acute ST-T wave changes. Unchanged from EKG obtained at 7 AM this morning. *DC/Admit/Observation/Transfer Diagnosis at time of Disposition: Chest pain Qualifiers: Chest pain type: unspecified Qualified Code(s): R07.9 - Chest pain, unspecified - Discharge Dispostion Disposition: HOME Condition at time of disposition: Stable Decision to Admit order: No - Referrals Referrals: Kim Jaime [Primary Care Provider] - Parker Courtney MD [Staff Physician] - - Patient Instructions Printed Discharge Instructions: DI for Chest Pain Additional Instructions: You were evaluated for chest pain today. Please drink plenty fluids and get plenty of rest. Please keep diary of when you have your chest pain. Please follow up with your modeler in [facility] soon as possible. Please follow up with a modeler in the [facility] when he returned. A referral has been provided 40. Return to the emergency department immediately if you have worsening chest pain , shortness of breath, difficulty breathing, arm numbness, or if you have any changes in her symptoms. - Post Discharge Activity
[2018-01-24 08:15] VITALS: TEMP 98.6; BMI 27.4
[2018-01-24] MEDS ORDERED: ASPIRIN 325 MG TABLET ONE (08:20)
--- NOTE | 2018-01-24 08:24 | PDOC ---
*Physical Exam - Vital Signs Last Vital Signs Temp Pulse Resp BP Pulse Ox 98.6 F 95 H 16 150/112 99 01/24/18 07:35 01/24/18 07:35 01/24/18 07:35 01/24/18 07:35 01/24/18 07:35 Heart Score/ECG Review - ECG Impressions Comment:: 01/24/18 08:24 Twelve-lead EKG was performed and reviewed by me. There is normal sinus rhythm with a normal rate. rate of 75 The axis is normal. The intervals are normal. There is normal R wave progression There are no ST or T wave abnormalities. Impression: Normal twelve-lead EKG ED Treatment Course - LABORATORY CBC & Chemistry Diagram: 01/24/18 08:11 01/24/18 08:11 - Medications Given in the ED: ED Medications Discontinued Medications Generic Name Dose Route Start Last Admin Trade Name Freq PRN Reason Stop Dose Admin Aspirin 324 mg 01/24/18 07:48 01/24/18 08:14 Asa - PO 01/24/18 07:49 324 mg ONCE ONE Administration Medical Decision Making - Medical Decision Making 01/24/18 08:21 The patient was seen and evaluated in conjunction with YOJANA Bonilla under my direct supervision, ancillary studies were reviewed. I independently evaluated the patient and I agree with the plan as outlined by YOJANA Bonilla . Briefly, pt is a 57y M hx of htn, hl, gerd presents with left sided chest pain, tingling in his arm/jaw without any sob, diaprhosis, n/v, and not worse with exertion, exam unremarkble. heart score 3. ekg unremarkble. will obtain trops and recommend obesvation for further risk stratefication *DC/Admit/Observation/Transfer Diagnosis at time of Disposition: Chest pain Qualifiers: Chest pain type: unspecified Qualified Code(s): R07.9 - Chest pain, unspecified - Discharge Dispostion Disposition: HOME Condition at time of disposition: Stable - Referrals Referrals: Parker Courtney MD [Staff Physician] - Kim Jaime [Primary Care Provider] - - Patient Instructions Printed Discharge Instructions: DI for Chest Pain Additional Instructions: You were evaluated for chest pain today. Please drink plenty fluids and get plenty of rest. Please keep diary of when you have your chest pain. Please follow up with your odd job worker in [facility] soon as possible. Please follow up with a odd job worker in the [place] when he returned. A referral has been provided 40. Return to the emergency department immediately if you have worsening chest pain , shortness of breath, difficulty breathing, arm numbness, or if you have any changes in her symptoms. - Post Discharge Activity
[2018-01-24 08:53] LABS: BASO % 0.7 % (0-2.0); EOS % 1.5 % (0-4.5); HEMATOCRIT 42.2 % (35.4-49); HEMOGLOBIN 14.4 GM/dL (11.7-16.9); LYMPH % 28.9 % (8-40); MCH 30.3 pg (25.7-33.7); MCHC 34.2 g/dl (32.0-35.9); MEAN CELL VOLUME 88.9 fl (80-96); MEAN PLT VOLUME 7.4 fl (7.5-11.1); MONO % 8.4 % (3.8-10.2); NEUT % 60.5 % (42.8-82.8); PLATELET COUNT 281 K/MM3 (134-434); RBC 4.75 M/mm3 (4.00-5.60); RDW 13.4 % (11.9-15.9); WHITE BLOOD COUNT 6.2 K/mm3 (4.0-10.0)
[2018-01-24 09:10] LABS: INR 1.12 (0.82-1.09); PROTHROMBIN TIME (PATIENT) 12.7 SEC (9.7-13.0)
[2018-01-24 09:34] LABS: ALBUMIN 3.9 g/dl (3.4-5.0); CHLORIDE 109 mmol/L (98-107); POTASSIUM 4.5 mmol/L (3.5-5.1); SODIUM 141 mmol/L (136-145)
[2018-01-24 09:44] LABS: ALK PHOS 84 U/L (45-117); ANION GAP 6 (8-16); BILIRUBIN,TOTAL 0.5 mg/dL (0.2-1.0); BLOOD UREA NITROGEN 13 mg/dL (7-18); CALCIUM 8.8 mg/dL (8.5-10.1); CO2 26 mmol/L (21-32); CREATININE 0.8 mg/dL (0.7-1.3); GLUCOSE,RANDOM 107 mg/dL (74-106); MAGNESIUM 2.2 mg/dL (1.8-2.4); SGOT/AST 35 U/L (15-37); SGPT/ALT 56 U/L (12-78); TOT PROT 7.2 g/dl (6.4-8.2)
--- NOTE | 2018-01-24 12:07 | EKG ---
Test Reason : Blood Pressure : / mmHG Vent. Rate : 075 BPM Atrial Rate : 075 BPM P-R Int : 150 ms QRS Dur : 102 ms QT Int : 400 ms P-R-T Axes : 032 -06 007 degrees QTc Int : 446 ms NORMAL SINUS RHYTHM NORMAL ECG WHEN COMPARED WITH ECG OF 19-SEP-2017 16:52, VENT. RATE HAS INCREASED BY 28 BPM Confirmed by ANDREW DUNN MD ([id number]) on 01/24/2018 12:07:11 PM Referred By: Confirmed By:ANDREW DUNN MD
[2018-01-24 12:25] VITALS: BP 133/78; PULSE 71
[2018-01-24 17:11] LABS: CHOLESTEROL 183 mg/dL (50-200); HDL CHOLESTEROL 38 mg/dL (40-60); TRIGLYCERIDES 153 mg/dL (35-160)
--- NOTE | 2018-01-24 21:20 | EKG ---
Test Reason : Blood Pressure : / mmHG Vent. Rate : 058 BPM Atrial Rate : 058 BPM P-R Int : 160 ms QRS Dur : 102 ms QT Int : 436 ms P-R-T Axes : 030 -06 -06 degrees QTc Int : 428 ms SINUS BRADYCARDIA OTHERWISE NORMAL ECG WHEN COMPARED WITH ECG OF 24-JAN-2018 07:49, NO SIGNIFICANT CHANGE WAS FOUND Confirmed by ANDREW DUNN MD ([id number]) on 01/24/2018 9:19:54 PM Referred By: Confirmed By:ANDREW DUNN MD
== END 2018-01-24 13:14 | disposition home or self-care (01) ==
LOC: JER 07:31
DX: R07.9 Chest pain, unspecified (principal); I10 Essential (primary) hypertension; E78.00 Pure hypercholesterolemia, unspecified; K21.9 Gastro-esophageal reflux disease without esophagitis
CPT/HCPCS: 36415; 71045-TC-FY; 80053; 80061; 82550; 83721; 83735; 84484; 85025; 85610; 93005; 93010; 99285-25

== ENCOUNTER 2018-06-27 10:49 | Emergency (ER) | payer BC ==
[2018-06-27 11:13] VITALS: TEMP 98.3; BMI 25.6
[2018-06-27] MEDS ORDERED: RANITIDINE HCL 150 MG/10 ML UNIT-DOSE PO ONE (14:07)
[2018-06-27] MEDS ORDERED: LIDOCAINE VISCOUS 2% ORAL/TOP 20 ML UNIT-DOSE CUP MM ONE (14:07)
[2018-06-27] MEDS ORDERED: MAG HYDROX/AL HYDROX/SIMETH 30 ML UNIT-DOSE CUP PO ONE (14:07)
[2018-06-27] MEDS ORDERED: LIDOCAINE VISCOUS 2% ORAL/TOP 20 ML UNIT-DOSE CUP ONE (14:18)
[2018-06-27] MEDS ORDERED: MAG HYDROX/AL HYDROX/SIMETH 30 ML UNIT-DOSE CUP ONE (14:18)
[2018-06-27] MEDS ORDERED: RANITIDINE HCL 150 MG TABLET (FP) ONE (14:18)
[2018-06-27 14:22] LABS: BASO % 1.1 % (0-2.0); EOS % 0.8 % (0-4.5); HEMATOCRIT 43.6 % (35.4-49); HEMOGLOBIN 15.5 GM/dL (11.7-16.9); LYMPH % 30.3 % (8-40); MCH 31.5 pg (25.7-33.7); MCHC 35.6 g/dl (32.0-35.9); MEAN CELL VOLUME 88.4 fl (80-96); MEAN PLT VOLUME 7.5 fl (7.5-11.1); MONO % 5.9 % (3.8-10.2); NEUT % 61.9 % (42.8-82.8); PLATELET COUNT 288 K/MM3 (134-434); RBC 4.93 M/mm3 (4.00-5.60); RDW 13.3 % (11.9-15.9); WHITE BLOOD COUNT 8.2 K/mm3 (4.0-10.0)
--- NOTE | 2018-06-27 14:37 | PDOC ---
History of Present Illness - General Chief Complaint: Chest Pain Stated Complaint: DRY MOUTH, CHEST PAIN Time Seen by Provider: 06/27/18 14:01 - History of Present Illness Initial Comments: Vamsi Kerns is a 57yo man with a PMH of HTN and GERD who presents with burning epigastric and sternal pain that worsens when laying down. He reports that he was evaluated for reflux several years ago, prescribed an acid medication, and had an EGD, but he has not followed up recently and no longer takes medication. He reports that his current symptoms are the same as the reflux symptoms he had previously. Mr Kerns states that he does not normally drink much alcohol, but he had wine on and Wednesday; he also states that he did not eat anything on Wednesday. Yesterday during the day he did not have any epigastric or abdominal pain, but when he layed down at night he started to have symptoms. The epigastric pain became more severe around 2:30am. He is feeling better currently as he has been sitting up for a while. He states that the pain is burning, non-radiating, and associated with nausea. He has not vomiting and denies lightheadedness, sweating, or exertional chest pain. He does report that the pain makes it feel like he cannot take a normal breath, but mostly when he lays down. He denies recent fevers, chills, or infectious symptoms and has not tried any medications at home to relieve his symptoms. Past History - Past Medical History Allergies/Adverse Reactions: Allergies Allergy/AdvReac Type Severity Reaction Status Date / Time No Known Drug Allergies Allergy Verified 06/27/18 11:10 Home Medications: Ambulatory Orders Lisinopril 10 mg PO DAILY 05/25/17 Simvastatin 20 mg PO HS 05/25/17 Famotidine [Pepcid -] 20 mg PO DAILY #30 tablet 06/27/18 Anemia: No Asthma: No Cancer: No Cardiac Disorders: No CVA: No COPD: No CHF: No Dementia: No Diabetes: Yes GI Disorders: No Disorders: No HTN: Yes Hypercholesterolemia: Yes Liver Disease: No Seizures: No Thyroid Disease: No - Surgical History Abdominal Surgery: No Appendectomy: No Cardiac Surgery: No Cholecystectomy: No Lung Surgery: No Neurologic Surgery: No Orthopedic Surgery: Yes (LUMBAR DISCECTOMY 1986) - Immunization History Immunization Up to Date: Yes - Suicide/Smoking/Psychosocial Hx Smoking History: Never smoked Have you smoked in the past 12 months: No Hx Alcohol Use: No Drug/Substance Use Hx: No Substance Use Type: None Review of Systems - Review of Systems Comments:: General: No fevers, no chills, no weight or appetite change, no malaise HEENT: No changes in vision, no changes in hearing, no congestion, no sore throat CV: No chest pain, no palpitations, no LE edema Pulm: No SOB, no cough, no wheezing GI: No vomiting, no change in bowel habits, no melena. H/O GERD : No frequency, no urgency, no dysuria Musc: No back pain, no joint swelling, no recent injury Skin: No rash, no lesions, no erythema Endo: No excessive thirst, no heat/cold intolerance Heme: No unusual bruising or bleeding, no swollen glands Neuro: No syncope, no numbness/tingling, no focal weakness Vasc: No claudication Psych: No recent change in mood, no SI or HI *Physical Exam - Vital Signs Last Vital Signs Temp Pulse Resp BP Pulse Ox 98.3 F 73 16 148/86 98 06/27/18 11:10 06/27/18 11:10 06/27/18 11:10 06/27/18 11:10 06/27/18 11:10 - Physical Exam Comments: General: Comfortable, no acute distress HEENT: PERRL, EOMI, MMM, voice normal, normal neck ROM, no LAD Cards: RRR, no murmur appreciated. TTP along inferior sternum and left lowest ribs Pulm: Comfortable on room air, clear to auscultation bilaterally Abd: Soft, non-distended. Epigastric TTP. Ext: Atraumatic. No LE edema. ROM intact. Strength 5/5 and equal bilaterally Vasc: Extremities WWP. Skin: Normal color, no rashes or lesions Neuro: A&Ox3, CN grossly intact, normal speech, motor/sensory grossly intact and symmetric Psych: Mood appropriate to situation ED Treatment Course - LABORATORY CBC & Chemistry Diagram: 06/27/18 14:08 06/27/18 14:08 Medical Decision Making - Medical Decision Making 06/27/18 14:08 Vamsi Kerns is a 57yo man with a PMH of HTN and GERD, no longer taking any medications for his reflux, who presents with burning epigastric discomfort that worsens when laying down similar to his previous reflux symptoms. - Most likely GERD, but need to r/o ACS. - EKG completed. NSR. As it has been approximately 12 hours since his pain started, reassuring that his symptoms are related to acid reflux rather than cardiac in nature - Reports higher alcohol intake than normal since with the holiday. Will evaluate for pancreatitis - CBC, CMP, lipase, amylase, and trop ordered to r/o ACS or abdominal pathology - GI cocktail for symptoms 06/27/18 15:27 - Labs negative for acute abnormalities - Plan to d/c home with GI follow up and rx for pepcid Discussed with Dr Madrid. Zulema Weeks PGY1 *DC/Admit/Observation/Transfer Diagnosis at time of Disposition: Acid reflux - Discharge Dispostion Disposition: HOME Condition at time of disposition: Stable Decision to Admit order: No - Referrals Referrals: Kim Jaime [Primary Care Provider] - Karsten Nick MD [Staff Physician] - - Patient Instructions Printed Discharge Instructions: DI for Gastroesophageal Reflux Disease (GERD) Additional Instructions: Discharge Instructions: You were seen in the emergency department with mid-upper abdominal pain. You had blood tests and an EKG to check your heart, pancreas, and abdominal organs and to evaluate for infection. All of your results were normal. Your pain is most likely due to the acid reflux that you were previously diagnosed with. Medications and home care: - You have been prescribed an acid medication called Pepcid. Take this daily to help prevent symptoms of acid reflux - You may also use medications such as Maalox, Mylanta, or Tums for continued symptoms. Follow the directions on the bottle - To help relieve symptoms, avoid caffeine, carbonated beverages, smoking, spicy foods, or anything that you notice makes your reflux worse. Avoid eating late at night. It may be helpful to sleep sitting up or with an extra pillow for the next few days. Follow up: - You have been referred to a GI doctor, Dr Nick, for follow up. Call within the next 2-3 days to schedule an appointment - Follow up with your primary doctor within the next week - Seek immediate medical care if you have severe worsening of your pain, pain associated with exercise, or pain that is accompanied by shortness of breath, lightheadedness, or severe sweating. Instrucciones de descarga: Usted fue atendido en el servicio de urgencias con dolor abdominal medio superior. Se le realizaron anlisis de claire y un electrocardiograma para controlar wall corazn, pncreas y rganos abdominales y para evaluar la infeccin. Todos william resultados fueron normales. Wall dolor es ms probable debido al reflujo cido con el que fue diagnosticado anteriormente. Medicamentos y cuidados a domicilio: - Le johnson recetado un medicamento cido llamado Pepcid. [place] esto diariamente para ayudar a prevenir los sntomas del reflujo cido. - Tambin puede usar medicamentos billy Maalox, Mylanta o Tums para los sntomas continuos. Siga las instrucciones en la botella. - Para ayudar a aliviar los sntomas, evite la cafena, las bebidas carbonatadas , fumar, las comidas picantes o cualquier cosa que note que empeora wall reflujo. Evite comer tarde por la noche. Puede ser til dormir sentado o con olga almohada adicional para los prximos alarcon. Seguir: - Lizama sido referido a un doctor de GI, el Dr. Nick, para un seguimiento. Llame dentro de los siguientes 2-3 alarcon para programar olga indira - Herber un seguimiento con wall mdico de cabecera dentro de la prxima semana. - Busque atencin mdica inmediata si tiene un empeoramiento ki de wall dolor , dolor asociado con el ejercicio o dolor acompaado de falta de aliento, mareo o sudoracin severa. - Post Discharge Activity
[2018-06-27 14:46] LABS: ALBUMIN 4.1 g/dl (3.4-5.0); ALK PHOS 83 U/L (45-117); AMYLASE 60 U/L (25-115); ANION GAP 7 MMOL/L (8-16); BILIRUBIN,TOTAL 1.1 mg/dL (0.2-1); BLOOD UREA NITROGEN 8 mg/dL (7-18); CALCIUM 9.2 mg/dL (8.5-10.1); CHLORIDE 106 mmol/L (98-107); CO2 27 mmol/L (21-32); CREATININE 0.8 mg/dL (0.55-1.3); GLUCOSE,RANDOM 106 mg/dL (74-106); LIPASE 166 U/L (73-393); POTASSIUM 4.2 mmol/L (3.5-5.1); SGOT/AST 29 U/L (15-37); SGPT/ALT 40 U/L (13-61); SODIUM 140 mmol/L (136-145); TOT PROT 7.4 g/dl (6.4-8.2)
--- NOTE | 2018-06-27 15:39 | PDOC ---
Attending Attestation - Resident Resident Name: DesiZulema - ED Attending Attestation I have performed the following: I have examined & evaluated the patient, The case was reviewed & discussed with the resident, I agree w/resident's findings & plan, Exceptions are as noted - HPI HPI: 06/27/18 15:38 The patient is a 57 year old male, with a significant past medical history of HTN and GERD, who presents to the emergency department with burning epigastric pain. As per patient, he has been off his GERD medications for some time now because he has not followed up with his PCP in over a year. Patient notes his symptoms are similar to his previous GERD episodes. He denies any recent fevers, chills, headache or dizziness. He denies any recent nausea, vomit, diarrhea or constipation. He denies any recent chest pain or shortness of breath. He denies any recent dysuria, frequency, urgency or hematuria. Allergies: NKDA Past surgical history: None reported. Social History: Nonsmoker. Denies EtOH use and recreational drug use. Primary Care Physician: Dr. Jaime - Physicial Exam PE: 06/27/18 15:38 "GENERAL: Awake, alert, and fully oriented, in no acute distress. HEAD: No signs of trauma EYES: PERRLA, EOMI, sclera anicteric, conjunctiva clear ENT: Auricles normal inspection, hearing grossly normal, nares patent, oropharynx clear without exudates. Moist mucosa NECK: Nontender, no stepoffs, Normal ROM, supple, no lymphadenopathy, JVD, or masses LUNGS: Breath sounds equal, clear to auscultation bilaterally. No wheezes, and no crackles HEART: Regular rate and rhythm, normal S1 and S2, no murmurs, rubs or gallops ABDOMEN: Soft, nontender, normoactive bowel sounds. No guarding, no rebound. No masses EXTREMITIES: Normal range of motion, no edema. No clubbing or cyanosis. No cords, erythema, or tenderness NEUROLOGICAL: Cranial nerves II through XII intact. 5/5 strength and sensation in all extremities, Normal speech, normal gait, normal cerebellar function SKIN: Warm, Dry, normal turgor, no rashes or lesions noted. - Medical Decision Making 06/27/18 15:38 57 M with epigastric burning. Likely gastritis/GERD/PUD. EKG with no ischemic changes to suggest ACS. - Labs, lipase, trop - GI cocktail Pt reassessed after meds - states the maalox helped immensely. Now denies any symptoms. Labs wnl, trop negative Pt is well appearing, with normal vitals. Clinically stable for DC at this time. I discussed the physical exam findings, ancillary test results and final diagnoses with the patient. I answered all of the patient's questions. The patient was satisfied with the care received and felt comfortable with the discharge plan and treatment plan. The patient agrees to follow up with the primary care physician within 24-72 hours.
[2018-06-27 15:55] VITALS: BP 146/82; PULSE 71
--- NOTE | 2018-09-16 20:30 | EKG ---
Test Reason : Blood Pressure : / mmHG Vent. Rate : 055 BPM Atrial Rate : 055 BPM P-R Int : 148 ms QRS Dur : 102 ms QT Int : 436 ms P-R-T Axes : 014 -08 015 degrees QTc Int : 417 ms SINUS BRADYCARDIA OTHERWISE NORMAL ECG WHEN COMPARED WITH ECG OF 24-JAN-2018 12:08, NO SIGNIFICANT CHANGE WAS FOUND Confirmed by ANAIS HERNANDEZ MD ([id number]) on 09/16/2018 8:29:42 PM Referred By: Confirmed By:ANAIS HERNANDEZ MD
== END 2018-06-27 15:50 | disposition home or self-care (01) ==
LOC: JER 10:49
DX: K21.9 Gastro-esophageal reflux disease without esophagitis (principal); I10 Essential (primary) hypertension; E78.00 Pure hypercholesterolemia, unspecified; E11.9 Type 2 diabetes mellitus without complications
CPT/HCPCS: 36415; 80053; 82150; 82550; 83690; 84484; 85025; 93005; 93010; 99284-25

== ENCOUNTER 2019-02-05 21:45 | Observation (INO) | payer BC ==
[2019-02-05 22:59] VITALS: BMI 30.7
--- NOTE | 2019-02-05 23:03 | PDOC ---
History of Present Illness - General Chief Complaint: Lightheaded Stated Complaint: LOST FEELING OF L HAND, CHEST, MOUTH/VOMITING Time Seen by Provider: 02/05/19 23:01 - History of Present Illness Initial Comments: 02/05/19 23:56 The patient is a 58 year old male with a history of HTN, HLD, TIA who presents for evaluation of chest pain, lightheadedness, and shortness of breath. The patient reports onset of left sided chest pressure with associated left arm tingling, shortness of breath, and lightheadedness earlier this evening prompting his presentation to the ED for further evaluation. He notes some associated nausea as well. He otherwise denies fevers, chills, vomiting, abdominal pain, or changes with urination or bowel movements. Past History - Past Medical History Allergies/Adverse Reactions: Allergies Allergy/AdvReac Type Severity Reaction Status Date / Time No Known Drug Allergies Allergy Verified 02/05/19 22:28 Home Medications: Ambulatory Orders Lisinopril 10 mg PO DAILY 05/25/17 Simvastatin 20 mg PO HS 05/25/17 Famotidine [Pepcid -] 20 mg PO DAILY #30 tablet 06/27/18 Metoclopramide HCl 5 mg PO TID 02/05/19 Anemia: No Asthma: No Cancer: No Cardiac Disorders: No CVA: No COPD: No CHF: No Dementia: No Diabetes: Yes GI Disorders: No Disorders: No HTN: Yes Hypercholesterolemia: Yes Liver Disease: No Seizures: No Thyroid Disease: No - Surgical History Abdominal Surgery: No Appendectomy: No Cardiac Surgery: No Cholecystectomy: No Lung Surgery: No Neurologic Surgery: No Orthopedic Surgery: Yes (LUMBAR DISCECTOMY 1986) - Immunization History Immunization Up to Date: Yes - Suicide/Smoking/Psychosocial Hx Smoking History: Never smoked Have you smoked in the past 12 months: No Information on smoking cessation initiated: No Hx Alcohol Use: No Drug/Substance Use Hx: No Substance Use Type: None Review of Systems - Review of Systems Comments:: 02/05/19 23:58 Constitutional: No fevers, chills, fatigue, malaise HEENT: No Rhinorrhea, nasal congestion, visual changes Cardiovascular: Chest pressure, Lightheadedness. No syncope, palpitations, Respiratory: SOB No Cough, Hemoptysis, Gastrointestinal: Nausea. No Abdominal pain, Vomiting, Constipation, Diarrhea, Melena Genitourinary: No Dysuria, Frequency, Urgency, Hesitancy, Hematuria, Flank pain Musculoskeletal: No Myalgia, arthralgia Skin: No rashes, itching, bruising, pallor Neurologic: Left arm tingling. No Headache, Dizziness, Numbness, Weakness, Psychiatric: No Hallucinations. No SI or HI *Physical Exam - Vital Signs Last Vital Signs Temp Pulse Resp BP Pulse Ox 98.5 F 85 19 125/84 97 02/05/19 21:45 02/05/19 21:45 02/05/19 21:45 02/05/19 21:45 02/05/19 21:45 - Physical Exam Comments: 02/05/19 23:58 General Appearance: Nourished. No Apparent Distress HEENT: No Pharyngeal Erythema, Tonsillar Exudate, Tonsillar Erythema Neck: No Cervical Lymphadenopathy Respiratory/Chest: Lungs Clear, Normal Breath Sounds. No Crackles, Rales, Rhonchi, Wheezing Cardiovascular: Regular Rhythm, Regular Rate. No Murmur, Gallops, Rubs Gastrointestinal/Abdominal: Normal Bowel Sounds, Soft. No Guarding, Rebound, Tenderness Musculoskeletal: No CVA Tenderness Extremity: Normal Capillary Refill Integumentary: Normal Color, Dry, Warm Neurologic: Fully Oriented, Alert, Normal Mood/Affect, Normal Response, Heart Score/ECG Review - History History: Moderately suspicious - Electrocardiogram EKG: Non specific repolarization disturbance - Age Age: 45-65 - Risk Factors Risk Factors Heart Score: Yes Hx Hypercholesterolemia, Yes Hx Hypertension Based on the list above the patient has:: 1-2 risk factors - Troponin Troponin: </= normal limit - Score Heart Score - Total: 4 #1 ECG reviewed & interpreted by me at: 23:59 02/05/19 23:59 HR 68 VA 148 QRS 116 QTc 459 Normal Sinus Rhythm Nonspecific T wave Abnormalities No Acute ST Changes ED Treatment Course - LABORATORY CBC & Chemistry Diagram: 02/05/19 23:30 02/05/19 23:30 Medical Decision Making - Medical Decision Making 02/06/19 00:01 The patient is a 58 year old male with a history of HTN, HLD, TIA who presents for evaluation of chest pain, lightheadedness, and shortness of breath. Differential includes but is not limited to: ACS, Arrhythmia, Infectious, Metabolic Derangement. Given the patient's history and physical exam, we will obtain a cbc, cmp, troponin, ekg, chest plain film to evaluate further. We will continue to monitor and reassess while here in the ED. 02/06/19 05:18 CBC, cmp, troponin are unremarkable. Chest plain film is unremarkable. Given the patient's cardiac risk factors and history, we believe he requires admission for further monitoring and management. We discussed the case with the admitting team who accepted the patient for admission. *DC/Admit/Observation/Transfer Diagnosis at time of Disposition: Shortness of breath Chest pain Qualifiers: Chest pain type: unspecified Qualified Code(s): R07.9 - Chest pain, unspecified - Discharge Dispostion Condition at time of disposition: Stable Decision to Admit order: Yes - Referrals - Patient Instructions - Post Discharge Activity
[2019-02-05 23:39] LABS: HEMATOCRIT 43.2 % (35.4-49)
[2019-02-05 23:46] LABS: EOS % 5.2 % (0-4.5); HEMOGLOBIN 14.7 GM/dL (11.7-16.9); MCH 30.6 pg (25.7-33.7); MEAN PLT VOLUME 7.5 fl (7.5-11.1); MONO % 10.1 % (3.8-10.2); NEUT % 52.7 % (42.8-82.8); PLATELET COUNT 267 K/MM3 (134-434); RDW 13.2 % (11.9-15.9); WHITE BLOOD COUNT 6.9 K/mm3 (4.0-10.0)
[2019-02-06 00:08] LABS: ALK PHOS 108 U/L (45-117); ANION GAP 6 MMOL/L (8-16); BILIRUBIN,TOTAL 0.3 mg/dL (0.2-1); BLOOD UREA NITROGEN 12.5 mg/dL (7-18); CALCIUM 8.8 mg/dL (8.5-10.1); CHLORIDE 108 mmol/L (98-107); CO2 28 mmol/L (21-32); CREATININE 0.8 mg/dL (0.55-1.3); GLUCOSE,RANDOM 118 mg/dL (74-106); POTASSIUM 3.9 mmol/L (3.5-5.1); SGOT/AST 21 U/L (15-37); SGPT/ALT 34 U/L (13-61); SODIUM 142 mmol/L (136-145); TOT PROT 7.2 g/dl (6.4-8.2)
[2019-02-06] MEDS ORDERED: ASPIRIN 81 MG CHEWABLE TABLETS PO ONE (00:31)
[2019-02-06] MEDS ORDERED: ASPIRIN 81 MG CHEWABLE TABLETS ONE (00:36)
--- NOTE | 2019-02-06 00:40 | PN ---
Teaching Attending Note Name of Resident: Reno Miller ATTENDING PHYSICIAN STATEMENT I saw and evaluated the patient. I reviewed the resident's note and discussed the case with the resident. I agree with the resident's findings and plan as documented. SUBJECTIVE: Patient is a 58 year old man with a PMH of HTN, HLD, TIA and GERD who presents for evaluation of chest pain, lightheadedness, and shortness of breath. The patient reports onset of left sided chest pressure with associated left arm tingling, shortness of breath, and lightheadedness earlier this evening. Symptoms started about 2 hours prior to arrival. There is associated nausea, but denies fevers, chills, vomiting, abdominal pain, or changes with urination or bowel movements. He denies any worsening or alleviating factors. He denies headache or dizziness. No family history of premature CAD. Reports that he had a "normal" EGD about 1 year ago. Patient is a nonsmoker and denies alcohol abuse, but there is documentation of bouts of increased alcohol intake in the past - especially around holidays. Says he drank 10 bears over the February 02 weekend. Denies sick contacts, calf pain, prolonged immobility, recent travel or use of illicit drugs. OBJECTIVE: Alert Vital Signs Period Temp Pulse Resp BP Sys/Woods Pulse Ox Last 24 Hr 98 F-98.5 F 74-85 18-19 115-125/72-84 95-97 HEENT: No Jaundice, eye redness or discharge, PERRLA, EOMI. Normocephalic, atraumatic. External ears are normal and hearing is grossly intact. No nasal discharge. Neck: Supple, nontender. No palpable adenopathy or thyromegaly. No JVD Chest: Good effort. Left side chest wall tenderness. Clear to auscultation and percussion. Heart: Regular. No S3, rub or murmur Abdomen: Not distended, soft, nontender and no HSM. No rebound or guarding. Normal bowel sounds. Ext: Peripheral pulses intact. No leg edema. Skin: Warm and dry. No petechiae, rash or ecchymosis. Neuro: Alert. Oriented x3. CN 2-12 grossly intact. Sensation grossly intact in all four extremities and DTR are symmetric. Psych: Appropriate mood and affect. Good insight. Home Medications Medication Instructions Recorded Lisinopril 10 mg PO DAILY 05/25/17 Simvastatin 20 mg PO HS 05/25/17 Famotidine [Pepcid -] 20 mg PO DAILY #30 tablet 06/27/18 Metoclopramide HCl 5 mg PO TID 02/05/19 Abnormal Lab Results 02/05/19 02/05/19 23:30 23:30 Eosinophils % 5.2 H D Chloride 108 H Anion Gap 6 L Random Glucose 118 H ASSESSMENT AND PLAN: 1. Chest pain - Though he has risk factors for CAD, his pain is atypical. EKG shows NSR with no significant ST-T wave changes and initial troponin is negative. No acute pathology on CXR. Got Aspirin 324 mg PO in the ER. Likely has a flare up of GERD or alcoholic gastritis. Will admit to telemetry to rule out ACS, get fasting lipids and ECHO. Treat with protonix 40 mg po bid. Counseled to abstain from alcohol. 2. Obesity Counseled on the risks associated with obesity. Will provide patient all the necessary assistance, counseling and positive reinforcement to facilitate weight loss. Consult premium card cancellation clerk. 3. Hypertension - Restart outpatient antihypertensive drugs when clinically appropriate. Revise regimen to ensure good BP control. Nonpharmacologic measures to control hypertension like weight loss, salt restriction and exercise discussed. 4. DVT prophylaxis - Lovenox 40 mg SQ q 24 hours. 5. Advance directives - Full code. 6. Alcohol abuse - Implement [facility] alcohol withdrawal protocol. Implement seizure, fall and aspiration precautions. Treat with thiamine and folic acid and monitor electrolytes (Ca,Mg,K,P). Counseled patient about abstaining from alcohol. Will refer to alcohol detox upon discharge.
--- NOTE | 2019-02-06 00:42 | PDOC ---
Documentation entered by Nasreen Shipley SCRIBE, acting as scribe for Fletcher Madrid MD. Fletcher Madrid MD: This documentation has been prepared by the Quinten gonzales Nirvannie, SCRIBE, under my direction and personally reviewed by me in its entirety. I confirm that the documentation accurately reflects all work, treatment, procedures, and medical decision making performed by me. Attending Attestation - Resident Resident Name: Fede Odell - ED Attending Attestation I have performed the following: I have examined & evaluated the patient, The case was reviewed & discussed with the resident, I agree w/resident's findings & plan, Exceptions are as noted - HPI HPI: 02/05/19 23:17 The patient is a 58 year old male, with a significant past medical history of HTN and GERD, who presents to the emergency department with left sided, pressure -like chest pain with associated left arm tingling, lightheadedness, shortness of breath, and nausea without emesis. He notes his symptoms started approximately 2 hours prior to her arrival. He denies any worsening or alleviating factors. He denies any recent fevers, chills, headache or dizziness. He denies any recent dysuria, frequency, urgency or hematuria. Allergies: NKDA Past surgical history: None reported. Social History: Nonsmoker. Denies EtOH use and recreational drug use. Primary Care Physician: Dr. Jaime - Physicial Exam PE: 02/05/19 23:17 GENERAL: Awake, alert, and fully oriented, in no acute distress. HEAD: No signs of trauma EYES: PERRLA, EOMI, sclera anicteric, conjunctiva clear ENT: Auricles normal inspection, hearing grossly normal, nares patent, oropharynx clear without exudates. Moist mucosa NECK: Nontender, no stepoffs, Normal ROM, supple, no lymphadenopathy, JVD, or masses LUNGS: Breath sounds equal, clear to auscultation bilaterally. No wheezes, and no crackles HEART: Regular rate and rhythm, normal S1 and S2, no murmurs, rubs or gallops ABDOMEN: Soft, nontender, normoactive bowel sounds. No guarding, no rebound. No masses EXTREMITIES: Normal range of motion, no edema. No clubbing or cyanosis. No cords, erythema, or tenderness NEUROLOGICAL: Cranial nerves II through XII intact. 5/5 strength and sensation in all extremities, Normal speech, normal gait, normal cerebellar function SKIN: Warm, Dry, normal turgor, no rashes or lesions noted. - Medical Decision Making 02/06/19 00:42 58 M with chest pain and SOB. Will need to r/o ACS. EKG with no ischemic changes. Pt with no PE risk factors. No infectious symptoms. - Labs, trop - CXR - Admit tele
[2019-02-06] MEDS ORDERED: PANTOPRAZOLE 40 MG TABLET (FP) ONE ×2 (02:25→08:59)
--- NOTE | 2019-02-06 02:27 | HP ---
CHIEF COMPLAINT: Left-sided chest pressure PCP: Dr Nick HISTORY OF PRESENT ILLNESS: 58M w/ pmh of HTN, HLD, ?TIA([facility], 2014), GERD, h/o H pylori(2018) s/p full treatment, mild obesity(BMI 30) presents to [facility]ED with complaint of painful Left-sided chest pressure with radiation to LUE w/a nausea and posterior HAM. Pain started while watching TV in bed. 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 Recently, started taking Famotidine x1wk for GERD. Had a night of drinking beers x10 for the February 02 holiday weekend. Has had episode of "chest pain" with previous [facility]ED visit in December 2017, with cardiac w/u returning negative. He states that he did not fu with cold roll catcher due to scheduling conflict with vacation at that time. ER course was notable for: (1) CXR neg (2) trop <0.02 (3) s/p ASA 325mg Recent Travel: [place] for February 02 weekend PAST MEDICAL HISTORY: HTN, HLD, ?TIA([facility], 2014), GERD, h/o H pylori(2018) s/p full treatment, mild obesity(BMI 30) PAST SURGICAL HISTORY: b/l arthorscopic knee, Right arthroscopic knee, open appy Social History: Smoking: denies Alcohol: social, occasional binge Drugs: denies Family History: Father(liver cancer), father's side has DM Allergies: No Known Drug Allergies Allergy (Verified 02/05/19 22:28) HOME MEDICATIONS: Home Medications Medication Instructions Recorded Lisinopril 10 mg PO DAILY 05/25/17 Simvastatin 20 mg PO HS 05/25/17 Famotidine [Pepcid -] 20 mg PO DAILY #30 tablet 06/27/18 Metoclopramide HCl 5 mg PO TID 02/05/19 REVIEW OF SYSTEMS CONSTITUTIONAL: nausea, HAM Absent: fever, chills, diaphoresis, generalized weakness, malaise, loss of appetite, weight change HEENT: Absent: difficulty swallowing, dry mouth CARDIOVASCULAR: Left-sided chest pressure Absent: palpitations, irregular heart rate, lightheadedness, peripheral edema RESPIRATORY: Absent: cough, shortness of breath, dyspnea with exertion, orthopnea, wheezing, stridor, hemoptysis GASTROINTESTINAL: nonbloody, watery stool Absent: abdominal pain, abdominal distension, nausea, vomiting, constipation, melena, hematochezia GENITOURINARY: Absent: dysuria, frequency, urgency, hesitancy, hematuria, flank pain, genital pain MUSCULOSKELETAL: Absent: myalgia, arthralgia, joint swelling, back pain, neck pain SKIN: Absent: rash, itching, pallor HEMATOLOGIC/IMMUNOLOGIC: Absent: easy bleeding, easy bruising, lymphadenopathy, frequent infections ENDOCRINE: Absent: unexplained weight gain, unexplained weight loss, heat intolerance, cold intolerance NEUROLOGIC: Absent: headache, focal weakness or paresthesias, dizziness, unsteady gait, seizure, mental status changes, bladder or bowel incontinence PSYCHIATRIC: Absent: anxiety, depression, suicidal or homicidal ideation, hallucinations. PHYSICAL EXAMINATION Vital Signs - 24 hr 02/05/19 02/05/19 21:45 22:45 Temperature 98.5 F 98 F Pulse Rate 85 Pulse Rate [ 74 Left Apical] Respiratory 19 18 Rate Blood Pressure 125/84 Blood Pressure 115/72 [Right Arm] O2 Sat by Pulse 97 95 Oximetry (%) GENERAL: Awake, alert, and fully oriented, in no acute distress. HEAD: Normal with no signs of trauma. No temporal wasting EYES: Pupils equal, round and reactive to light, extraocular movements intact, sclera anicteric, conjunctiva clear. EARS, NOSE, THROAT: Ears normal, nares patent. Moist mucous membranes. NECK: Normal range of motion, supple without lymphadenopathy, JVD, or masses. LUNGS: Breath sounds equal, clear to auscultation bilaterally. No wheezes, and no crackles. No accessory muscle use. HEART: Regular rate and rhythm, normal S1 and S2 without murmur, rub or gallop. Mild TTP of Left chest wall, diffuse ABDOMEN: Soft, nontender, not distended, no guarding, no rebound, no masses. RLQ transverse surgical scar MUSCULOSKELETAL: Normal range of motion at all joints. No bony deformities or tenderness. No CVA tenderness. UPPER EXTREMITIES: 2+ pulses, warm, well-perfused. No cyanosis. No clubbing. No peripheral edema. LOWER EXTREMITIES: 2+ pulses, warm, well-perfused. No peripheral edema. NEUROLOGICAL: Normal speech. Moving all extremities spontaneously PSYCHIATRIC: Cooperative. Good eye contact. Appropriate mood and affect. SKIN: Warm, dry, normal turgor, no rashes or lesions noted, normal capillary refill. Laboratory Results - last 24 hr 02/05/19 02/05/19 23:30 23:30 WBC 6.9 RBC 4.80 Hgb 14.7 Hct 43.2 MCV 90.0 MCH 30.6 MCHC 34.0 RDW 13.2 Plt Count 267 MPV 7.5 Absolute Neuts (auto) 3.6 Neutrophils % 52.7 Lymphocytes % 31.0 Monocytes % 10.1 Eosinophils % 5.2 H D Basophils % 1.0 Nucleated RBC % 0 Sodium 142 Potassium 3.9 Chloride 108 H Carbon Dioxide 28 Anion Gap 6 L BUN 12.5 Creatinine 0.8 Est GFR (CKD-EPI)AfAm 114.13 Est GFR (CKD-EPI)NonAf 98.47 Random Glucose 118 H Calcium 8.8 Total Bilirubin 0.3 AST 21 ALT 34 Alkaline Phosphatase 108 Creatine Kinase 71 Troponin I < 0.02 Total Protein 7.2 Albumin 4.0 ASSESSMENT/PLAN: 58M w/ pmh of HTN, HLD, ?TIA([facility], 2014), GERD, h/o H pylori(2017) s/p full treatment, mild obesity(BMI 30) with Left-sided chest pain possibly 2/2 to costal-chrondritis vs GERD vs alcohol-induced gastritis vs unlikely ACS. # L-sided chest wall pain >troponin(02/06, ~22:00) <0.02 >EKG(02/06) w/o ST-abn - HEART score ~4 - admit to tele obs - trend troponins - repeat EKG in AM - echo - lipidemia panel # GERD - pantoprazole 40mg PO BID # HTN - cw home lisinopril # HLD - cw home simivastatin DISPO - likely home pending resolution of above issues Reno Miller DO PGY-1 Medicine, PM Float [id number] 02/06/19 Visit type - Emergency Visit Emergency Visit: Yes ED Registration Date: 02/06/19 Care time: The patient presented to the Emergency Department on the above date and was hospitalized for further evaluation of their emergent condition. - New Patient This patient is new to me today: Yes Date on this admission: 02/06/19 - Critical Care Critical Care patient: No
[2019-02-06] MEDS: PANTOPRAZOLE 40 MG TABLET (FP) PO SCH ×2 (02:31→09:04)
[2019-02-06 07:16] LABS: HEMATOCRIT 42.8 % (35.4-49); HEMOGLOBIN 14.7 GM/dL (11.7-16.9); MCH 30.9 pg (25.7-33.7); MCHC 34.3 g/dl (32.0-35.9); MEAN CELL VOLUME 90.2 fl (80-96); MEAN PLT VOLUME 7.8 fl (7.5-11.1); PLATELET COUNT 259 K/MM3 (134-434); RBC 4.74 M/mm3 (4.00-5.60); RDW 12.9 % (11.9-15.9); WHITE BLOOD COUNT 6.6 K/mm3 (4.0-10.0)
[2019-02-06 07:18] LABS: BLOOD UREA NITROGEN 10.9 mg/dL (7-18); CALCIUM 8.8 mg/dL (8.5-10.1); CREATININE 0.8 mg/dL (0.55-1.3); MAGNESIUM 2.4 mg/dL (1.8-2.4); PHOSPHOROUS 3.3 mg/dL (2.5-4.9)
[2019-02-06] MEDS ORDERED: LISINOPRIL 5 MG TABLET (FP) ONE (08:59)
[2019-02-06] MEDS ORDERED: ENOXAPARIN NA (PORCINE) 40 MG/0.4 ML DISP.SYRIN SQ ONE (08:59)
[2019-02-06] MEDS ORDERED: ENOXAPARIN NA (PORCINE) 40 MG/0.4 ML DISP.SYRIN SQ SCH (10:00)
[2019-02-06] MEDS ORDERED: LISINOPRIL 10 MG TABLET (FP) PO SCH (10:00)
--- NOTE | 2019-02-06 11:10 | EKG ---
Test Reason : Blood Pressure : / mmHG Vent. Rate : 055 BPM Atrial Rate : 055 BPM P-R Int : 148 ms QRS Dur : 110 ms QT Int : 470 ms P-R-T Axes : -09 019 -16 degrees QTc Int : 449 ms SINUS BRADYCARDIA OTHERWISE NORMAL ECG WHEN COMPARED WITH ECG OF 05-FEB-2019 22:04, NO SIGNIFICANT CHANGE WAS FOUND Confirmed by ARACELI SALDIVAR MD ([id number]) on 02/06/2019 11:09:54 AM Referred By: Confirmed By:ARACELI SALDIVAR MD
--- NOTE | 2019-02-06 11:16 | EKG ---
Test Reason : Blood Pressure : / mmHG Vent. Rate : 068 BPM Atrial Rate : 068 BPM P-R Int : 148 ms QRS Dur : 116 ms QT Int : 432 ms P-R-T Axes : 035 -07 010 degrees QTc Int : 459 ms NORMAL SINUS RHYTHM NONSPECIFIC T WAVE ABNORMALITY ABNORMAL ECG WHEN COMPARED WITH ECG OF 27-JUN-2018 11:03, NO SIGNIFICANT CHANGE WAS FOUND Confirmed by ARACELI SALDIVAR MD ([id number]) on 02/06/2019 11:16:25 AM Referred By: Confirmed By:ARACELI SALDIVAR MD
--- NOTE | 2019-02-06 12:37 | ECHO ---
Name: SHANIQUE MCKAY Exam:Adult Echocardiogram Study Date: 02/06/2019 11:35 AM Age: 58 yrs Reason For Study: r/o acs Height: 62 in Weight: 168 lb BSA: 1.8 m2 MMode/2D Measurements & Calculations IVSd: 1.0 cm Ao root diam: 2.8 cm LVIDd: 3.8 cm LA dimension: 3.5 cm LVIDs: 2.8 cm LVPWd: 1.1 cm EDV(Teich): 63.3 ml LVOT diam: 2.0 cm ESV(Teich): 28.3 ml LAV (MOD-bp): 29.5 ml Doppler Measurements & Calculations MV E max milo: 53.8 cm/sec Ao V2 max: 143.9 cm/sec MV A max milo: 84.4 cm/sec Ao max P.3 mmHg MV E/A: 0.64 MV dec time: 0.21 sec BRITTNEY(V,D): 2.4 cm2 LV V1 max P.9 mmHg PA V2 max: 126.2 cm/sec LV V1 max: 111.1 cm/sec PA max P.4 mmHg Med Peak E' Milo: 5.5 cm/sec PI Vmax: 145.2 cm/sec Med E/e': 9.7 Lat Peak E' Milo: 8.3 cm/sec Lat E/e': 6.5 Procedure The study was technically adequate with some images being suboptimal in quality. Left Ventricle The left ventricular size, thickness and function are normal. Ejection Fraction = 55-60%. Grade I haydee stolic dysfunction, (abnormal relaxation pattern). Right Ventricle The right ventricle is normal in size and function. Atria Normal left and right atrial size and function. IVC 1.2 cm. Mitral Valve The mitral valve is normal in structure and function. There is no evidence of mitral valve prolapse. There is no mitral regurgitation noted. Tricuspid Valve The tricuspid valve is not well visualized. There is trace tricuspid regurgitation. There was insuffi cient TR detected to calculate RV systolic pressure. Aortic Valve The aortic valve opens well. The aortic valve is normal in structure and function. The aortic valve i s trileaflet. No aortic regurgitation is present. Pulmonic Valve The pulmonic valve is not well visualized. Trace pulmonic valvular regurgitation. Great Vessels The aortic root is normal size. Pericardium/Pleura There is no pericardial effusion. Interpretation Summary There is no comparison study available. The left ventricular size, thickness and function are normal The right ventricle is normal in size and function. There is trace tricuspid regurgitation. James Randall MD 02/06/2019 12:36 PM
--- NOTE | 2019-02-06 13:29 | CON.CARD ---
Consult Consult Specialty:: Cardiology Reason for Consultation:: chest pain - History Source History Provided By: Patient, Medical Record - Past Medical History Cardio/Vascular: Yes: HTN, Hyperlipdemia - Alcohol/Substance Use Hx Alcohol Use: No - Smoking History Smoking history: Never smoked Have you smoked in the past 12 months: No Home Medications - Allergies Allergies/Adverse Reactions: Allergies Allergy/AdvReac Type Severity Reaction Status Date / Time No Known Drug Allergies Allergy Verified 02/05/19 22:28 - Home Medications Home Medications: Ambulatory Orders Lisinopril 10 mg PO DAILY 05/25/17 Simvastatin 20 mg PO HS 05/25/17 Metoclopramide HCl 5 mg PO TID 02/05/19 Famotidine [Pepcid] 40 mg PO DAILY 02/06/19 Tadalafil [Cialis] 10 mg PO DAILY 02/06/19 Review of Systems - Review of Systems Constitutional: reports: No Symptoms Eyes: reports: No Symptoms HENT: reports: No Symptoms Neck: reports: No Symptoms Cardiovascular: reports: Chest Pain Respiratory: reports: No Symptoms Gastrointestinal: reports: No Symptoms Genitourinary: reports: No Symptoms Breasts: reports: No Symptoms Reported Musculoskeletal: reports: No Symptoms Integumentary: reports: No Symptoms Neurological: reports: No Symptoms Endocrine: reports: No Symptoms Hematology/Lymphatic: reports: No Symptoms Psychiatric: reports: No Symptoms Vital Signs: Vital Signs Temperature 98 F 02/06/19 07:15 Pulse Rate 98 H 02/06/19 09:04 Respiratory Rate 18 02/06/19 09:04 Blood Pressure 124/83 02/06/19 09:04 O2 Sat by Pulse Oximetry (%) 98 02/06/19 09:04 Constitutional: Yes: Well Nourished, No Distress, Calm Eyes: Yes: WNL, Conjunctiva Clear, EOM Intact HENT: Yes: WNL, Atraumatic, Normocephalic Neck: Yes: WNL, Supple, Trachea Midline Respiratory: Yes: WNL, Regular, CTA Bilaterally Gastrointestinal: Yes: WNL, Normal Bowel Sounds Renal/: Yes: WNL Cardiovascular: Yes: WNL, Regular Rate and Rhythm Heart Sounds: Yes: S1, S2 Musculoskeletal: Yes: WNL Extremities: Yes: WNL Integumentary: Yes: WNL Neurological: Yes: WNL, Alert, Oriented ...Motor Strength: WNL Psychiatric: Yes: WNL, Alert, Oriented - Other Data Labs, Other Data: CBC, BMP 02/06/19 06:10 02/06/19 06:10 Troponin, BNP 02/05/19 02/06/19 23:30 04:00 Troponin I < 0.02 < 0.02 Troponin, BNP 02/05/19 02/06/19 23:30 04:00 Troponin I < 0.02 < 0.02 Imaging - Results Chest X-ray: Image Reviewed (no i/e) EKG: Image Reviewed (s estiven repolarization abnormalities) Other: Image Reviewed (echo nl ef) Problem List - Problems (1) Chest pain Code(s): R07.9 - CHEST PAIN, UNSPECIFIED Qualifiers: Chest pain type: unspecified Qualified Code(s): R07.9 - Chest pain, unspecified (2) Shortness of breath Code(s): R06.02 - SHORTNESS OF BREATH (3) Acid reflux Code(s): K21.9 - GASTRO-ESOPHAGEAL REFLUX DISEASE WITHOUT ESOPHAGITIS (4) Contusion of chest wall Code(s): S20.219A - CONTUSION OF UNSPECIFIED FRONT WALL OF THORAX, INIT ENCNTR (5) Contusion of face Code(s): S00.83XA - CONTUSION OF OTHER PART OF HEAD, INITIAL ENCOUNTER (6) Nephrolithiasis Code(s): N20.0 - CALCULUS OF KIDNEY Assessment/Plan cpsx r/o mi neg htn hlp h/o TIA echo nl Plan mibi st keep ldl below 70 will f/u
--- NOTE | 2019-02-06 14:00 | PN ---
Teaching Attending Note Name of Resident: Sera Loza ATTENDING PHYSICIAN STATEMENT I saw and evaluated the patient. I reviewed the resident's note and discussed the case with the resident. I agree with the resident's findings and plan as documented. SUBJECTIVE: Patient is a 58yo male presented with chest pain. Patient stated that whenever he takes this "Reglan" medication, he feels that his blood pressure gets elevated and starts having chest pain. Denies any chest pain at this time. OBJECTIVE: Vital Signs Temperature 98.1 F 02/06/19 13:30 Pulse Rate 63 02/06/19 13:30 Respiratory Rate 18 02/06/19 13:30 Blood Pressure 107/65 02/06/19 13:30 O2 Sat by Pulse Oximetry (%) 96 02/06/19 13:30 GENERAL: The patient is awake, alert, and fully oriented, in no acute distress. HEAD: Normal with no signs of trauma. EYES: PERRL, extraocular movements intact, sclera anicteric, conjunctiva clear. ENT: Ears normal, oropharynx clear without exudates, moist mucous membranes. NECK: Trachea midline, full range of motion, supple. LUNGS: Breath sounds equal, clear to auscultation bilaterally, no wheezes, no crackles, no accessory muscle use. HEART: Regular rate and rhythm, S1, S2 without murmur, rub or gallop. ABDOMEN: Soft, nontender, nondistended, normoactive bowel sounds, no guarding, no rebound, no hepatosplenomegaly, no masses. EXTREMITIES: 2+ pulses, warm, well-perfused, no edema. NEUROLOGICAL: Cranial nerves II through XII grossly intact. Normal speech, gait not observed. PSYCH: Normal mood, normal affect. SKIN: Warm, dry, normal turgor, no rashes or lesions noted CBCD WBC 6.6 K/mm3 (4.0-10.0) 02/06/19 06:10 RBC 4.74 M/mm3 (4.00-5.60) 02/06/19 06:10 Hgb 14.7 GM/dL (11.7-16.9) 02/06/19 06:10 Hct 42.8 % (35.4-49) 02/06/19 06:10 MCV 90.2 fl (80-96) 02/06/19 06:10 MCHC 34.3 g/dl (32.0-35.9) 02/06/19 06:10 RDW 12.9 % (11.9-15.9) 02/06/19 06:10 Plt Count 259 K/MM3 (134-434) 02/06/19 06:10 MPV 7.8 fl (7.5-11.1) 02/06/19 06:10 CMP Sodium 143 mmol/L (136-145) 02/06/19 06:10 Potassium 4.0 mmol/L (3.5-5.1) 02/06/19 06:10 Chloride 108 mmol/L (98-107) H 02/06/19 06:10 Carbon Dioxide 28 mmol/L (21-32) 02/06/19 06:10 Anion Gap 7 MMOL/L (8-16) L 02/06/19 06:10 BUN 10.9 mg/dL (7-18) 02/06/19 06:10 Creatinine 0.8 mg/dL (0.55-1.3) 02/06/19 06:10 Random Glucose 95 mg/dL (74-106) 02/06/19 06:10 Calcium 8.8 mg/dL (8.5-10.1) 02/06/19 06:10 Total Bilirubin 0.3 mg/dL (0.2-1) 02/05/19 23:30 AST 21 U/L (15-37) 02/05/19 23:30 ALT 34 U/L (13-61) 02/05/19 23:30 Alkaline Phosphatase 108 U/L (45-117) 02/05/19 23:30 Total Protein 7.2 g/dl (6.4-8.2) 02/05/19 23:30 Albumin 4.0 g/dl (3.4-5.0) 02/05/19 23:30 CARDIAC ENZYMES Creatine Kinase 81 U/L (26-308) 02/06/19 04:00 Troponin I < 0.02 ng/ml (0.00-0.05) 02/06/19 04:00 Current Medications Generic Name Dose Route Start Last Admin Trade Name Freq PRN Reason Stop Dose Admin Atorvastatin Calcium 80 mg 02/06/19 22:00 Lipitor - PO HS NATALIA Enoxaparin Sodium 40 mg 02/06/19 10:00 02/06/19 09:04 Lovenox - SQ 40 mg DAILY NATALIA Administration Lisinopril 10 mg 02/06/19 10:00 02/06/19 09:04 Prinivil PO 10 mg DAILY NATALIA Administration Pantoprazole Sodium 40 mg 02/06/19 02:00 02/06/19 09:04 Protonix - PO 40 mg BID NATALIA Administration Home Medications Medication Instructions Recorded Lisinopril 10 mg PO DAILY 05/25/17 Simvastatin 20 mg PO HS 05/25/17 Metoclopramide HCl 5 mg PO TID 02/05/19 Famotidine [Pepcid] 40 mg PO DAILY 02/06/19 Tadalafil [Cialis] 10 mg PO DAILY 02/06/19 Laboratory Tests 01/24/18 06/27/18 02/05/19 16:30 14:08 23:30 Troponin I < 0.02 < 0.02 Triglycerides 153 Cholesterol 183 Total LDL Cholesterol 119 H HDL Cholesterol 38 L 02/06/19 02/06/19 04:00 06:10 Troponin I < 0.02 Triglycerides 190 H Cholesterol 199 Total LDL Cholesterol 142 H HDL Cholesterol 39 L ASSESSMENT AND PLAN: Patient is a 58yo male with Pmhx of HTN, HLD, questionable TIA([facility], 2015), GERD , h/o H pylori(2017) s/p full treatment, presented with Left-sided chest pain r/ o ACS. # Acute chest pain r/o ACS , 3 sets of troponin is negative. Going for stress test; mibi; pending result, cardio seen the patient, dr Courtney. as per patient , every time he takes Reglan, he develops chest pain and his blood pressure gets elevated. #HLD increased the dose of Lipitor to 80mg po hs # GERD: On pantoprazole 40mg PO BID # HTN: continue home lisinopril DVT px: Lovenox
--- NOTE | 2019-02-06 16:49 | PN ---
Physical Exam: SUBJECTIVE: Patient seen and examined in the ED. Pt was lying comfortably in the bed no acute events overnight. OBJECTIVE: Vital Signs Period Temp Pulse Resp BP Sys/Woods Pulse Ox Last 24 Hr 98 F-98.5 F 63-98 16-19 107-125/65-84 95-98 GENERAL: The patient is awake, alert, and fully oriented, in no acute distress. HEAD: Normal with no signs of trauma. EYES: gross extraocular movements intact, sclera anicteric, conjunctiva clear. No ptosis. NECK: supple. LUNGS: Breath sounds equal, clear to auscultation bilaterally, no wheezes, no crackles, no accessory muscle use. HEART: Regular rate and rhythm, S1, S2 without murmur, rub or gallop. ABDOMEN: Soft, nontender, nondistended, no rebound, no masses. EXTREMITIES: 2+ pulses, warm, well-perfused, no edema. NEUROLOGICAL: Cranial nerves II through XII grossly intact. Normal speech, gait not observed. PSYCH: Normal mood, normal affect. SKIN: Warm, dry, no rashes or lesions noted Laboratory Results - last 24 hr 02/05/19 02/05/19 02/06/19 23:30 23:30 04:00 WBC 6.9 RBC 4.80 Hgb 14.7 Hct 43.2 MCV 90.0 MCH 30.6 MCHC 34.0 RDW 13.2 Plt Count 267 MPV 7.5 Absolute Neuts (auto) 3.6 Neutrophils % 52.7 Lymphocytes % 31.0 Monocytes % 10.1 Eosinophils % 5.2 H D Basophils % 1.0 Nucleated RBC % 0 Sodium 142 Potassium 3.9 Chloride 108 H Carbon Dioxide 28 Anion Gap 6 L BUN 12.5 Creatinine 0.8 Est GFR (CKD-EPI)AfAm 114.13 Est GFR (CKD-EPI)NonAf 98.47 Random Glucose 118 H Hemoglobin A1c % Calcium 8.8 Phosphorus Magnesium Total Bilirubin 0.3 AST 21 ALT 34 Alkaline Phosphatase 108 Creatine Kinase 71 81 Troponin I < 0.02 < 0.02 Total Protein 7.2 Albumin 4.0 Triglycerides Cholesterol Total LDL Cholesterol HDL Cholesterol 02/06/19 02/06/19 02/06/19 06:10 06:10 06:10 WBC 6.6 RBC 4.74 Hgb 14.7 Hct 42.8 MCV 90.2 MCH 30.9 MCHC 34.3 RDW 12.9 Plt Count 259 MPV 7.8 Absolute Neuts (auto) Neutrophils % Lymphocytes % Monocytes % Eosinophils % Basophils % Nucleated RBC % Sodium 143 Potassium 4.0 Chloride 108 H Carbon Dioxide 28 Anion Gap 7 L BUN 10.9 Creatinine 0.8 Est GFR (CKD-EPI)AfAm 114.13 Est GFR (CKD-EPI)NonAf 98.47 Random Glucose 95 Hemoglobin A1c % 5.6 Calcium 8.8 Phosphorus 3.3 Magnesium 2.4 Total Bilirubin AST ALT Alkaline Phosphatase Creatine Kinase Troponin I Total Protein Albumin Triglycerides 190 H Cholesterol 199 Total LDL Cholesterol 142 H HDL Cholesterol 39 L Active Medications Generic Name Dose Route Start Last Admin Trade Name Freq PRN Reason Stop Dose Admin Atorvastatin Calcium 80 mg 02/06/19 22:00 Lipitor - PO HS NATALIA Enoxaparin Sodium 40 mg 02/06/19 10:00 02/06/19 09:04 Lovenox - SQ 40 mg DAILY NATALIA Administration Lisinopril 10 mg 02/06/19 10:00 02/06/19 09:04 Prinivil PO 10 mg DAILY NATALIA Administration Pantoprazole Sodium 40 mg 02/06/19 02:00 02/06/19 09:04 Protonix - PO 40 mg BID NATALIA Administration ASSESSMENT/PLAN: This is a 58 y/o M with a PMH of HTN, HLD, ?TIA ([facility], 2015), GERD, h/o H pylori s/p triple therapy (2018), presented to the ED with complaints of left sided chest pressure with radiation to LUE and nausea with posterior headache. #Left sided chest wall tenderness - troponins X3 were negative (<0.02) - EKG no ischemic changes or ST changes. - HEART score ~4. - admit to tele observation - echo was normal - Dr. alcala consulted- ordered sestamibi scan and recommended to lower LDL <70. #HLD - LIPID panel showing triglycerides- 190, 199-cholesterol, HDL-39 - increase atorvastatin to 80mg PO HS. #GERD - pantoprazole 40mg BID PO - stopped his home reglan. #HTN -Continue lisinopril as prescribed. Dispo- likely home pending negative sestamiba scan from cardio. DVT PPX: SCD FEN- no fluids indicated - monitor lytes - on full diet. Visit type - Emergency Visit Emergency Visit: Yes ED Registration Date: 02/06/19 Care time: The patient presented to the Emergency Department on the above date and was hospitalized for further evaluation of their emergent condition. - New Patient This patient is new to me today: Yes Date on this admission: 02/06/19 - Critical Care Critical Care patient: No - Discharge Referral Referred to [facility] No ATTENDING PHYSICIAN STATEMENT I saw and evaluated the patient. I reviewed the resident's note and discussed the case with the resident. I agree with the resident's findings and plan as documented. SUBJECTIVE: OBJECTIVE: ASSESSMENT AND PLAN:
[2019-02-06 19:31] VITALS: BP 119/70; PULSE 65; TEMP 98.3
[2019-02-06] MEDS ORDERED: ATORVASTATIN CA 40 MG TABLET (FP) PO SCH ×2 (22:00)
[2019-02-06] MEDS ORDERED: ATORVASTATIN CA 10 MG TABLET (FP) PO SCH (22:00)
[2019-02-06] MEDS ORDERED: ATORVASTATIN CA 80 MG TABLET (FP) PO SCH (22:00)
--- NOTE | 2019-02-07 08:20 | DS ---
Physical Exam: SUBJECTIVE: Patient was seen lying in bed comfortably in the ED. He had no acute events while here. OBJECTIVE: Vital Signs Period Temp Pulse Resp BP Sys/Woods Pulse Ox Last 24 Hr 98.1 F-98.3 F 63-98 18-18 107-124/65-83 96-98 PHYSICAL EXAM GENERAL: The patient is awake, alert, and fully oriented, in no acute distress. HEAD: Normal with no signs of trauma. NECK: Trachea midline, full range of motion, supple. LUNGS: Breath sounds equal, clear to auscultation bilaterally, no wheezes, no crackles, no accessory muscle use. HEART: Regular rate and rhythm, S1, S2 without murmur, rub or gallop. ABDOMEN: Soft, nontender, nondistended, normoactive bowel sounds, no guarding, no rebound, no masses. EXTREMITIES: 2+ pulses, warm, well-perfused, no edema. NEUROLOGICAL: Cranial nerves II through XII grossly intact. Normal speech, gait not observed. PSYCH: Normal mood, normal affect. SKIN: Warm, dry, no rashes or lesions noted. LABS HOSPITAL COURSE: Date of Admission:02/06/19 This patient was admitted to r/o ACS due to presenting with left sided chest pain radiating to his shoulder. Labs and imaging: -Troponins were negative X3 - no ischemic changes on EKG. - We had cardiology (Dr. Soriano) see him and he did an echo which resulted in a normal EF and no abnormalities. -Furthermore, a sestamibi cardiac stress test was performed and found to have no ischemic areas and no arrythmias present. - Lipid panel showed elevated LDL, triglycerides, and cholesterol so we: increased his statin to atorvastatin 80 mg PO HS. - Patient was taken off his reglan because patient endorsed he began to feel this way after starting this new medication. - Pt advised to continue with all his other home medications as prescribed and to return to the ED if he has these symptoms again. Date of Discharge: 02/07/19 Minutes to complete discharge: 35 Discharge Summary Reason For Visit: SHORTNESS OF BREATH, CHEST PAIN Condition: Good - Instructions Diet, Activity, Other Instructions: You were admitted to determine if your chest pain was related to your heart. While you were here we did an EKG, blood tests (cardiac enzymes) nuclear stress test (sestamibi stress test) of your heart which resulted in all normal results. At this time, your heart is functioning properly. - Please follow up with the cardioligist (Dr. Soriano) within one week , Your Stress test is negative. - Please make an appointment to see your primary care physician as well in 1 week. - For your cholesterol, please take atorvastatin 80mg by mouth before bed every day( we increased the dose of the cholesterol medication, please stop your simvastatin and take aterovastatin instead) - Resume your home meds as prescribed. - Please come back to the emergency room if you have worsening of your symptoms. (chest pain, shortness of breath, nausea, vomiting, sweating, dizziness). Referrals: herman soriano [Other] - 1 Week Disposition: HOME - Home Medications Comprehensive Discharge Medication List: Ambulatory Orders Lisinopril 10 mg PO DAILY 05/25/17 Atorvastatin Ca [Lipitor] 80 mg PO HS #30 tab 02/06/19 Pantoprazole Sodium [Protonix -] 40 mg PO BID tablet.ec 02/06/19 This patient is new to me today: Yes Date on this admission: 02/07/19 Emergency Visit: Yes ED Registration Date: 02/06/19 Care time: The patient presented to the Emergency Department on the above date and was hospitalized for further evaluation of their emergent condition. Critical Care patient: No - Discharge Referral Referred to [facility] No ATTENDING PHYSICIAN STATEMENT I saw and evaluated the patient. I reviewed the resident's note and discussed the case with the resident. I agree with the resident's findings and plan as documented. SUBJECTIVE: OBJECTIVE: ASSESSMENT AND PLAN:
== END 2019-02-06 19:38 | disposition home or self-care (01) ==
LOC: JER 21:45 → JERBED 02-06 00:33
PROVIDERS: ADMIT Internal Medicine; ATTEND Internal Medicine
PROC: 3E013GC Introduction of Other Therapeutic Substance into Subcutaneous Tissue, Percutaneous Approach (ICD-10-PCS; principal; 2019-02-06)
DX: R07.9 Chest pain, unspecified (principal); I10 Essential (primary) hypertension; E78.5 Hyperlipidemia, unspecified; E78.00 Pure hypercholesterolemia, unspecified; K21.9 Gastro-esophageal reflux disease without esophagitis; E66.9 Obesity, unspecified; Z68.30 Body mass index [BMI] 30.0-30.9, adult; Z86.73 Personal history of transient ischemic attack (TIA), and cerebral infarction without residual deficits; Z87.442 Personal history of urinary calculi
CPT/HCPCS: 36415; 71046-TC-FY; 78452-TC; 80048; 80053; 80061; 82550; 83036; 83721; 83735; 84100; 84484; 85025; 85027; 93005; 93010; 93017; 93306-TC; 99284-25; A9502; G0378

== ENCOUNTER 2021-05-05 21:35 | Inpatient (IN) | payer BC ==
[2021-05-05] MEDS ORDERED: SODIUM CHLORIDE 0.9% 500 ML INFUS.BAG IV ONE (23:29)
[2021-05-05] MEDS ORDERED: ACETAMINOPHEN 1000 MG/100 ML VIAL (NON FORMULARY) IVPB ONE (23:29)
[2021-05-05] MEDS ORDERED: ACETAMINOPHEN INJECTION 100 ML IVPB ONE (23:39)
[2021-05-05 23:41] LABS: BASO % 1.2 % (0-2.0); EOS % 2.6 % (0-4.5); HEMATOCRIT 40.7 % (35.4-49); HEMOGLOBIN 13.9 GM/dL (11.7-16.9); LYMPH % 38.5 % (8-40); MCH 29.8 pg (25.7-33.7); MCHC 34.2 g/dl (32.0-35.9); MEAN CELL VOLUME 87.1 fl (80-96); MONO % 8.2 % (3.8-10.2); NEUT % 49.5 % (42.8-82.8); PLATELET COUNT 280 10^3/uL (134-434); RBC 4.67 M/mm3 (4.00-5.60); RDW 13.1 % (11.9-15.9); WHITE BLOOD COUNT 7.1 K/mm3 (4.0-10.0)
[2021-05-05 23:59] LABS: CHLORIDE 108 mmol/L (98-107); SODIUM 141 mmol/L (136-145)
[2021-05-06 00:01] LABS: CALCIUM 9.3 mg/dL (8.5-10.1)
[2021-05-06 00:02] LABS: ANION GAP 5 MMOL/L (8-16); BLOOD UREA NITROGEN 8.9 mg/dL (7-18); CO2 28 mmol/L (21-32); GLUCOSE,RANDOM 98 mg/dL (74-106); LIPASE 156 U/L (73-393)
[2021-05-06 00:05] LABS: CREATININE 0.7 mg/dL (0.55-1.3); SGOT/AST 47 U/L (15-37); SGPT/ALT 60 U/L (13-61)
[2021-05-06 00:06] LABS: BILIRUBIN,TOTAL 0.8 mg/dL (0.2-1)
[2021-05-06 00:07] LABS: TOT PROT 7.4 g/dl (6.4-8.2)
[2021-05-06 00:08] LABS: ALK PHOS 76 U/L (45-117)
[2021-05-06] MEDS ORDERED: FAMOTIDINE 20 MG/50 ML IVPB 20 MG/50 ML MG IVPB ONE ×2 (00:58→01:15)
[2021-05-06] MEDS ORDERED: MAG HYDROX/AL HYDROX/SIMETH 30 ML UNIT-DOSE CUP PO ONE (00:58)
[2021-05-06] MEDS ORDERED: MAG HYDROX/AL HYDROX/SIMETH 30 ML UNIT-DOSE CUP ONE (01:14)
[2021-05-06] MEDS ORDERED: CEFTRIAXONE 1 GM in DEXTROSE 5%-WATER - 100 ML IVPB ONE (02:59)
[2021-05-06] MEDS ORDERED: CEFTRIAXONE 1 GM/50 ML BAG ONE (03:05)
[2021-05-06] MEDS ORDERED: PANTOPRAZOLE 40 MG TABLET ONE (07:56)
[2021-05-06] MEDS ORDERED: VALSARTAN 80 MG TABLET ONE (07:57)
[2021-05-06] MEDS: DEXTROSE 5%-NORMAL SALINE 1,000 ML IV SCH ×2 (08:18→17:06)
[2021-05-06] MEDS: VALSARTAN 160 MG TABLET PO SCH (10:30)
[2021-05-06] MEDS: PANTOPRAZOLE 40 MG TABLET PO SCH (10:30)
[2021-05-06 17:25] VITALS: BMI 29.0
[2021-05-06] MEDS ORDERED: ACETAMINOPHEN 1000 MG/100 ML VIAL (NON FORMULARY) IVPB PRN (19:50)
[2021-05-06] MEDS: LATANOPROST 0.005% OPHTH SOLN 2.5ML BOTTLE OU SCH (21:16)
[2021-05-06] MEDS: ROSUVASTATIN CA 20 MG TABLET (FP) PO SCH (21:16)
[2021-05-07] MEDS ORDERED: DEXTROSE 5%-WATER - 50 ML IVPB ONE (03:16)
[2021-05-07] MEDS ORDERED: cefTRIAXone SODIUM 1 GM VIAL ONE (03:16)
[2021-05-07] MEDS: CEFTRIAXONE 1 GM in DEXTROSE 5%-WATER - 50 ML IVPB SCH (03:21)
[2021-05-07 08:10] LABS: INR 1.14 (0.83-1.09)
[2021-05-07 08:12] LABS: ACTIVATED PTT 30.3 SECONDS (25.2-36.5)
[2021-05-07 08:17] LABS: BASO % 0.9 % (0-2.0); EOS % 2.4 % (0-4.5); HEMATOCRIT 41.8 % (35.4-49); HEMOGLOBIN 14.5 GM/dL (11.7-16.9); MCH 30.4 pg (25.7-33.7); MCHC 34.8 g/dl (32.0-35.9); MEAN CELL VOLUME 87.4 fl (80-96); MEAN PLT VOLUME 7.4 fl (7.5-11.1); MONO % 6.9 % (3.8-10.2); NEUT % 58.8 % (42.8-82.8); PLATELET COUNT 295 10^3/uL (134-434); RBC 4.78 M/mm3 (4.00-5.60); WHITE BLOOD COUNT 6.5 K/mm3 (4.0-10.0)
[2021-05-07] MEDS: DEXTROSE 5%-NORMAL SALINE 1,000 ML IV SCH (08:19)
[2021-05-07 08:24] LABS: BLOOD UREA NITROGEN 7.4 mg/dL (7-18)
[2021-05-07 08:28] LABS: CREATININE 0.8 mg/dL (0.55-1.3)
[2021-05-07] MEDS: VALSARTAN 160 MG TABLET PO SCH (09:50)
[2021-05-07] MEDS: PANTOPRAZOLE 40 MG TABLET PO SCH (09:51)
[2021-05-07] MEDS: LACTOBACILLUS ACIDOPHILUS 1 TABLET PO SCH (11:57)
[2021-05-07] MEDS: LATANOPROST 0.005% OPHTH SOLN 2.5ML BOTTLE OU SCH (21:07)
[2021-05-07] MEDS: ROSUVASTATIN CA 20 MG TABLET (FP) PO SCH (21:07)
[2021-05-08] MEDS: DEXTROSE 5%-NORMAL SALINE 1,000 ML IV SCH ×2 (02:10→10:42)
[2021-05-08] MEDS ORDERED: cefTRIAXone SODIUM 1 GM VIAL ONE (02:40)
[2021-05-08] MEDS ORDERED: DEXTROSE 5%-WATER - 50 ML IVPB ONE (02:40)
[2021-05-08] MEDS: CEFTRIAXONE 1 GM in DEXTROSE 5%-WATER - 50 ML IVPB SCH (02:46)
[2021-05-08] MEDS ORDERED: FAMOTIDINE 20 MG/50 ML IVPB 20 MG/50 ML MG IVPB ONE (09:27)
[2021-05-08] MEDS: LACTOBACILLUS ACIDOPHILUS 1 TABLET PO SCH (10:39)
[2021-05-08] MEDS: VALSARTAN 160 MG TABLET PO SCH (10:39)
[2021-05-08] MEDS ORDERED: ACETAMINOPHEN 1000 MG/100 ML VIAL (NON FORMULARY) IVPB PRN (11:01)
[2021-05-08] MEDS: PANTOPRAZOLE 40 MG TABLET PO SCH (11:05)
[2021-05-08] MEDS ORDERED: FAMOTIDINE 20 MG TABLET PO SCH (18:00)
[2021-05-08] MEDS: LATANOPROST 0.005% OPHTH SOLN 2.5ML BOTTLE OU SCH (22:16)
[2021-05-08] MEDS: FAMOTIDINE 20 MG TABLET PO SCH (22:16)
[2021-05-08] MEDS: ROSUVASTATIN CA 20 MG TABLET (FP) PO SCH (22:16)
[2021-05-09] MEDS ORDERED: cefTRIAXone SODIUM 1 GM VIAL ONE (04:06)
[2021-05-09] MEDS ORDERED: DEXTROSE 5%-WATER - 50 ML IVPB ONE (04:07)
[2021-05-09] MEDS: CEFTRIAXONE 1 GM in DEXTROSE 5%-WATER - 50 ML IVPB SCH (04:17)
[2021-05-09] MEDS: FAMOTIDINE 20 MG TABLET PO SCH (09:41)
[2021-05-09] MEDS: LACTOBACILLUS ACIDOPHILUS 1 TABLET PO SCH (09:41)
[2021-05-09] MEDS: VALSARTAN 160 MG TABLET PO SCH (09:41)
[2021-05-09] MEDS: DEXTROSE 5%-NORMAL SALINE 1,000 ML IV SCH (09:42)
[2021-05-09 13:19] VITALS: PULSE 68
[2021-05-09 15:54] VITALS: BP 145/92; TEMP 98.5
== END 2021-05-09 18:35 | disposition home or self-care (01) | DRG 446 ==
LOC: JER 21:35 → JERBED 05-06 02:48 → J6S 05-06 14:07
PROVIDERS: ADMIT Internal Medicine; ATTEND Internal Medicine
DX: K80.80 Other cholelithiasis without obstruction (principal); I10 Essential (primary) hypertension; E78.5 Hyperlipidemia, unspecified; K21.9 Gastro-esophageal reflux disease without esophagitis; K76.0 Fatty (change of) liver, not elsewhere classified; H40.9 Unspecified glaucoma; K57.90 Diverticulosis of intestine, part unspecified, without perforation or abscess without bleeding; T18.3XXA Foreign body in small intestine, initial encounter; X58.XXXA Exposure to other specified factors, initial encounter; Y93.9 Activity, unspecified; Y92.9 Unspecified place or not applicable
CPT/HCPCS: 36415; 74177-TC; 76705-TC; 80048; 80053; 82550; 83690; 84484; 85025; 85610; 85730; 93005; 93010; 99285-25; C9803; J0131; U0003; U0005

== ENCOUNTER 2021-11-02 21:15 | Emergency (ER) | payer BC ==
[2021-11-02 21:35] VITALS: BP 139/83; PULSE 76; TEMP 97.6; BMI 28.1
[2021-11-02] MEDS ORDERED: OXYMETAZOLINE 0.05% NASAL SOLUTION 15 ML BOTTLE NS ONE (21:43)
[2021-11-02 22:10] LABS: BASO % 1.2 % (0-2.0); EOS % 1.8 % (0-4.5); HEMATOCRIT 38.8 % (35.4-49); HEMOGLOBIN 13.3 GM/dL (11.7-16.9); LYMPH % 39.3 % (8-40); MCH 29.2 pg (25.7-33.7); MCHC 34.2 g/dl (32.0-35.9); MEAN CELL VOLUME 85.4 fl (80-96); MEAN PLT VOLUME 7.2 fl (7.5-11.1); MONO % 9.2 % (3.8-10.2); NEUT % 48.5 % (42.8-82.8); PLATELET COUNT 283 10^3/uL (134-434); RBC 4.55 M/mm3 (4.00-5.60); RDW 13.4 % (11.9-15.9); WHITE BLOOD COUNT 6.8 K/mm3 (4.0-10.0)
== END 2021-11-02 23:07 | disposition home or self-care (01) ==
LOC: JER 21:15
DX: R04.0 Epistaxis (principal)
CPT/HCPCS: 36415; 85025; 99283-25

== ENCOUNTER 2022-05-12 09:52 | Emergency (ER) | payer BC ==
[2022-05-12 10:06] VITALS: BP 133/83; PULSE 78; RESP 20; TEMP 98.5; BMI 29.6
[2022-05-12] MEDS ORDERED: KETOROLAC TROMETHAMINE 30 MG/1 ML VIAL IM ONE (12:15)
[2022-05-12] MEDS ORDERED: METHOCARBAMOL 500 MG TABLET PO ONE (12:15)
[2022-05-12] MEDS ORDERED: KETOROLAC TROMETHAMINE 30 MG/1 ML VIAL ONE (13:07)
[2022-05-12] MEDS ORDERED: METHOCARBAMOL 500 MG TABLET ONE (13:07)
== END 2022-05-12 14:39 | disposition home or self-care (01) ==
LOC: JER 09:52
PROC: 3E023GC Introduction of Other Therapeutic Substance into Muscle, Percutaneous Approach (ICD-10-PCS; principal; 2022-05-12)
DX: M54.2 Cervicalgia (principal)
CPT/HCPCS: 93005; 93010; 99284-25

== ENCOUNTER 2023-11-30 08:49 | Inpatient (IN) | payer BC ==
[2023-11-30] MEDS ORDERED: KETOROLAC TROMETHAMINE 15 MG/ML VIAL IVPUSH ONE (10:06)
[2023-11-30] MEDS ORDERED: KETOROLAC TROMETHAMINE 30 MG/1 ML VIAL ONE (10:24)
[2023-11-30] MEDS: KETOROLAC TROMETHAMINE 30 MG/1 ML VIAL IM ONE (10:31)
[2023-11-30] MEDS ORDERED: LIDOCAINE 5% TOPICAL PATCH TP ONE (13:55)
[2023-11-30] MEDS ORDERED: METHOCARBAMOL 500 MG TABLET ONE (14:45)
[2023-11-30] MEDS ORDERED: LIDOCAINE 4% PATCH TP ONE (14:46)
[2023-11-30] MEDS: LIDOCAINE 4% PATCH TP ONE (14:52)
[2023-11-30] MEDS: METHOCARBAMOL 750 MG TAB PO ONE (14:52)
[2023-11-30] MEDS ORDERED: KETOROLAC TROMETHAMINE 15 MG/ML VIAL IVPUSH PRN (16:58)
[2023-11-30] MEDS ORDERED: ACETAMINOPHEN 325 MG TABLET (FP) PO PRN (16:59)
[2023-11-30] MEDS ORDERED: PANTOPRAZOLE 40 MG TABLET PO PRN (17:04)
[2023-11-30] MEDS ORDERED: FAMOTIDINE 10 MG TABLET ONE (17:48)
[2023-11-30] MEDS ORDERED: predniSONE 20 MG TABLET (UD) ONE (17:48)
[2023-11-30] MEDS ORDERED: GABAPENTIN 100 MG CAPSULE ONE (17:49)
[2023-11-30] MEDS: GABAPENTIN 100 MG CAPSULE PO SCH (17:57)
[2023-11-30] MEDS: predniSONE 20 MG TABLET (UD) PO ONE (17:57)
[2023-11-30] MEDS: FAMOTIDINE 10 MG TABLET PO ONE (17:57)
[2023-11-30] MEDS: morphine CARPU-JECT 2 MG/1 ML DISP.SYRIN IVPUSH ONE (18:20)
[2023-11-30 18:22] LABS: BASO % 1.4 % (0-2.0); EOS % 2.9 % (0-4.5); HEMATOCRIT 41.4 % (35.4-49); LYMPH % 37.8 % (8-40); MCH 30.3 pg (25.7-33.7); MCHC 33.7 g/dl (32.0-35.9); MEAN CELL VOLUME 89.9 fl (80-96); MEAN PLT VOLUME 7.2 fl (7.5-11.1); MONO % 6.7 % (3.8-10.2); NEUT % 51.2 % (42.8-82.8); PLATELET COUNT 290 10^3/uL (134-434); RBC 4.61 M/mm3 (4.00-5.60); RDW 13.6 % (11.9-15.9); WHITE BLOOD COUNT 5.6 K/mm3 (4.0-10.0)
[2023-11-30 18:44] LABS: POTASSIUM 3.5 mmol/L (3.5-5.1)
[2023-11-30 18:46] LABS: CALCIUM 8.7 mg/dL (8.5-10.1)
[2023-11-30 18:47] LABS: ALBUMIN 3.7 g/dl (3.4-5.0)
[2023-11-30 18:50] LABS: CREATININE 0.8 mg/dL (0.55-1.3)
[2023-11-30 18:52] LABS: BILIRUBIN,TOTAL 0.7 mg/dL (0.2-1); TOT PROT 6.6 g/dl (6.4-8.2)
[2023-11-30 20:02] VITALS: BMI 25.2
[2023-11-30] MEDS: LATANOPROST 0.005% OPHTH SOLN 2.5ML BOTTLE OU SCH (21:55)
[2023-11-30] MEDS: TIMOLOL 0.5% OPHTHALMIC SOL 5 ML BOTTLE OU SCH (21:56)
[2023-11-30] MEDS: CYCLOBENZAPRINE HCL 5 MG TABLET PO SCH (21:56)
[2023-11-30] MEDS: VALSARTAN 160 MG TABLET PO SCH (21:56)
[2023-11-30] MEDS: DORZOLAMIDE 2% HCL OPHTHALMIC SOLUTION 10 ML BOTTLE OU SCH (21:57)
[2023-11-30] MEDS ORDERED: PATIENT'S OWN MEDICATION (NON-FORMULARY) (Dorzolamide Hcl/Timolol Maleat [Dorzolamide-Timo OU SCH (22:00)
[2023-11-30] MEDS ORDERED: LIDOCAINE PATCH REMOVAL MC SCH (22:00)
[2023-11-30] MEDS: LIDOCAINE PATCH REMOVAL MC ONE (22:05)
[2023-12-01] MEDS: ACETAMINOPHEN 500 MG TABLET (FP) PO SCH (08:56)
[2023-12-01] MEDS: ENOXAPARIN NA (PORCINE) 40 MG/0.4 ML DISP.SYRIN SQ SCH (10:14)
[2023-12-01] MEDS: GABAPENTIN 100 MG CAPSULE PO SCH (15:05)
[2023-12-01] MEDS: LIDOCAINE 5% TOPICAL PATCH TP SCH (18:34)
[2023-12-02] MEDS: LIDOCAINE PATCH REMOVAL MC SCH (06:10)
[2023-12-02] MEDS ORDERED: ACETAMINOPHEN INJECTION 100 ML IVPB ONE (07:33)
[2023-12-02] MEDS ORDERED: ONDANSETRON 4 MG/2 ML VIAL ONE ×2 (07:38→10:46)
[2023-12-02] MEDS ORDERED: ceFAZolin SODIUM 1 GM VIAL ONE (07:38)
[2023-12-02] MEDS ORDERED: SODIUM CHLORIDE 0.9% P/F 10 ML VIAL IJ ONE ×2 (07:38→09:17)
[2023-12-02] MEDS ORDERED: TRANEXAMIC ACID 1000 MG/10 ML VIAL ONE ×2 (07:38→07:44)
[2023-12-02] MEDS ORDERED: LIDOCAINE HCL/PF 2% SDV 5ML VIAL ONE (07:38)
[2023-12-02] MEDS ORDERED: DEXAMETHASONE SOD PHOSPHATE 4 MG/1 ML VIAL ONE ×2 (07:38→10:46)
[2023-12-02] MEDS ORDERED: SUCCINYLCHOLINE CHLORIDE 200 MG/10 ML SYRINGE ONE (07:41)
[2023-12-02] MEDS: VANCOMYCIN 1 GM in NS (PRE-DOCKED) 1,000 MG/250 ML (RESTRICTED TO ID ONLY) IVPB ONE ×2 (07:41→08:25)
[2023-12-02] MEDS: LIDOCAINE 1%/EPI 1:100000 (20 ML MULTI DOSE VIAL) IJ ONE ×2 (07:41→09:08)
[2023-12-02] MEDS ORDERED: ROCURONIUM BROMIDE 50 MG/5 ML SYRINGE ONE ×2 (07:41→09:41)
[2023-12-02] MEDS: ceFAZolin SODIUM 1 GM VIAL IVPB ONE ×2 (07:41→09:08)
[2023-12-02] MEDS ORDERED: FENTANYL CITRATE/PF 50 MCG/ML VIAL ONE ×5 (07:43→14:32)
[2023-12-02] MEDS ORDERED: PROPOFOL 40 ML ONE (07:44)
[2023-12-02] MEDS ORDERED: KETAMINE HCL 200 MG/20 ML VIAL ONE (07:45)
[2023-12-02] MEDS ORDERED: MAGNESIUM SULF 50% (8.12 MEQ/2 ML-1 GM VIAL) ONE (07:45)
[2023-12-02] MEDS ORDERED: MIDAZOLAM HCL 2 MG/2 ML SINGLE DOSE VIAL ONE (07:46)
[2023-12-02] MEDS ORDERED: VANCOMYCIN 1,000 MG VIAL (RESTRICTED TO ID ONLY) ONE (07:47)
[2023-12-02] MEDS ORDERED: FAMOTIDINE 20 MG/50 ML IVPB 20 MG/50 ML MG IVPB ONE (07:48)
[2023-12-02] MEDS ORDERED: ONDANSETRON 4 MG/2 ML VIAL IVPUSH PRN ×3 (07:56→13:05)
[2023-12-02 08:20] LABS: INR 1.19 (0.83-1.09); PROTHROMBIN TIME (PATIENT) 13.4 SEC (9.7-13.0)
[2023-12-02 08:31] LABS: BASO % 1.1 % (0-2.0); EOS % 1.8 % (0-4.5); HEMATOCRIT 41.9 % (35.4-49); HEMOGLOBIN 14.2 GM/dL (11.7-16.9); MCH 30.1 pg (25.7-33.7); MCHC 33.8 g/dl (32.0-35.9); MEAN CELL VOLUME 89.1 fl (80-96); MEAN PLT VOLUME 7.5 fl (7.5-11.1); MONO % 6.1 % (3.8-10.2); PLATELET COUNT 303 10^3/uL (134-434); POTASSIUM 4.4 mmol/L (3.5-5.1); RBC 4.71 M/mm3 (4.00-5.60); RDW 13.3 % (11.9-15.9); WHITE BLOOD COUNT 6.3 K/mm3 (4.0-10.0)
[2023-12-02 08:39] LABS: ALBUMIN 3.8 g/dl (3.4-5.0)
[2023-12-02 08:41] LABS: CALCIUM 9.2 mg/dL (8.5-10.1)
[2023-12-02 08:42] LABS: BLOOD UREA NITROGEN 8.9 mg/dL (7-18); MAGNESIUM 2.5 mg/dL (1.8-2.4)
[2023-12-02] MEDS ORDERED: GLYCOPYRROLATE 0.2 MG/1 ML VIAL ONE (08:42)
[2023-12-02 08:45] LABS: CREATININE 0.7 mg/dL (0.55-1.3)
[2023-12-02] MEDS ORDERED: HYDROmorphone HCl 2 MG/ML VIAL ONE (09:17)
[2023-12-02 09:24] LABS: INR 1.21 (0.83-1.09); PROTHROMBIN TIME (PATIENT) 13.6 SEC (9.7-13.0)
[2023-12-02 09:26] LABS: ACTIVATED PTT 33.5 SECONDS (25.2-36.5)
[2023-12-02] MEDS: THROMBIN (BOVINE) 5,000 UNIT VIAL TP ONE (09:49)
[2023-12-02] MEDS: HYDROGEN PEROXIDE 473 ML PO ONE ×2 (09:49→10:30)
[2023-12-02] MEDS: VANCOMYCIN 1 GM in D5W (PRE-DOCKED) 1,000 MG/250 ML (RESTRICTED TO ID ONLY IVPB ONE ×2 (09:50→11:43)
[2023-12-02] MEDS: GENTAMICIN SO4 80 MG/2 ML VIAL IVPB ONE ×2 (09:50→10:30)
[2023-12-02] MEDS: BUPIVACAINE LIPOSOME/PF (EXPAREL) 266 MG/20 ML VIAL NR ONE ×2 (09:51→12:09)
[2023-12-02] MEDS: BUPIVACAINE HCL/PF 0.5% (5 MG/ML) 30 ML VIAL IJ ONE ×2 (09:51→12:09)
[2023-12-02] MEDS ORDERED: SUGAMMADEX SODIUM 200 MG/2 ML VIAL ONE (12:07)
[2023-12-02] MEDS ORDERED: diphenhydrAMINE HCL 25 MG CAPSULE (FP) PO PRN (13:05)
[2023-12-02] MEDS: HYDROmorphone *PCA* 10MG/50ML DISP.SYRIN PCA SCH ×2 (13:44→15:00)
[2023-12-02] MEDS: LACTATED RINGERS SOLUTION 1,000 ML IV SCH ×2 (13:44→15:10)
[2023-12-02] MEDS: LACTATED RINGERS SOLUTION 1,000 ML/1,000 ML INFUS.BAG IV SCH (13:45)
[2023-12-02] MEDS: ACETAMINOPHEN 500 MG TABLET (FP) PO SCH (16:00)
[2023-12-02] MEDS: PANTOPRAZOLE 40 MG TABLET PO SCH (16:01)
[2023-12-02] MEDS: DOCUSATE SODIUM 100 MG CAPSULE (FP) PO SCH (16:14)
[2023-12-02] MEDS: CYCLOBENZAPRINE HCL 5 MG TABLET PO SCH (16:14)
[2023-12-02] MEDS: GABAPENTIN 100 MG CAPSULE PO SCH (16:14)
[2023-12-02] MEDS: LIDOCAINE 5% TOPICAL PATCH TP SCH (18:23)
[2023-12-02] MEDS: CEFAZOLIN 1 GM in DEXTROSE 5%-WATER - 50 ML IVPB SCH (18:24)
[2023-12-02] MEDS: VALSARTAN 160 MG TABLET PO SCH (22:19)
[2023-12-02] MEDS: TIMOLOL 0.5% OPHTHALMIC SOL 5 ML BOTTLE OU SCH (22:38)
[2023-12-02] MEDS: DORZOLAMIDE 2% HCL OPHTHALMIC SOLUTION 10 ML BOTTLE OU SCH (22:39)
[2023-12-02] MEDS: LATANOPROST 0.005% OPHTH SOLN 2.5ML BOTTLE OU SCH (22:39)
[2023-12-03] MEDS: LIDOCAINE PATCH REMOVAL MC SCH (06:34)
[2023-12-03 08:08] LABS: POTASSIUM 3.8 mmol/L (3.5-5.1)
[2023-12-03 08:11] LABS: CALCIUM 8.3 mg/dL (8.5-10.1)
[2023-12-03 08:12] LABS: ALBUMIN 3.2 g/dl (3.4-5.0); BLOOD UREA NITROGEN 9.9 mg/dL (7-18); MAGNESIUM 2.2 mg/dL (1.8-2.4)
[2023-12-03 08:15] LABS: CREATININE 0.7 mg/dL (0.55-1.3)
[2023-12-03 08:16] LABS: BILIRUBIN,TOTAL 0.9 mg/dL (0.2-1); TOT PROT 5.7 g/dl (6.4-8.2)
[2023-12-03 08:21] LABS: BASO % 0.1 % (0-2.0); EOS % 0.1 % (0-4.5); HEMATOCRIT 33.6 % (35.4-49); HEMOGLOBIN 11.6 GM/dL (11.7-16.9); LYMPH % 14.6 % (8-40); MCH 30.6 pg (25.7-33.7); MCHC 34.4 g/dl (32.0-35.9); MEAN CELL VOLUME 88.7 fl (80-96); MEAN PLT VOLUME 7.7 fl (7.5-11.1); MONO % 5.7 % (3.8-10.2); NEUT % 79.5 % (42.8-82.8); PLATELET COUNT 254 10^3/uL (134-434); RBC 3.78 M/mm3 (4.00-5.60); RDW 13.4 % (11.9-15.9); WHITE BLOOD COUNT 13.1 K/mm3 (4.0-10.0)
[2023-12-03] MEDS: PANTOPRAZOLE 40 MG TABLET PO SCH (10:51)
[2023-12-03] MEDS: FOLIC ACID 1 MG TABLET (FP) PO SCH (10:51)
[2023-12-03] MEDS: FERROUS SO4 325 MG TABLET (FP) PO SCH (10:51)
[2023-12-03] MEDS: POLYETHYLENE GLYCOL (HEALTHYLAX) 3350 17 GM PACKET PO ONE (14:37)
[2023-12-03] MEDS: LACTATED RINGERS SOLUTION 1,000 ML IV SCH (16:16)
[2023-12-03] MEDS: ACETAMINOPHEN 325 MG TABLET (FP) PO PRN (18:24)
[2023-12-03] MEDS: oxyCODONE HCL 5 MG TABLET PO PRN (19:01)
[2023-12-04] MEDS: oxyCODONE HCL 5 MG TABLET PO PRN (00:21)
[2023-12-04 07:05] LABS: BASO % 0.3 % (0-2.0); EOS % 0.3 % (0-4.5); HEMATOCRIT 38.3 % (35.4-49); HEMOGLOBIN 12.9 GM/dL (11.7-16.9); LYMPH % 18.9 % (8-40); MCH 30.1 pg (25.7-33.7); MCHC 33.6 g/dl (32.0-35.9); MEAN CELL VOLUME 89.4 fl (80-96); MEAN PLT VOLUME 7.5 fl (7.5-11.1); MONO % 8.1 % (3.8-10.2); NEUT % 72.4 % (42.8-82.8); PLATELET COUNT 274 10^3/uL (134-434); RBC 4.29 M/mm3 (4.00-5.60); RDW 13.3 % (11.9-15.9); WHITE BLOOD COUNT 12.5 K/mm3 (4.0-10.0)
[2023-12-04 07:28] LABS: POTASSIUM 4.4 mmol/L (3.5-5.1)
[2023-12-04 07:36] LABS: CALCIUM 8.6 mg/dL (8.5-10.1)
[2023-12-04 07:37] LABS: ALBUMIN 3.6 g/dl (3.4-5.0); BLOOD UREA NITROGEN 8.9 mg/dL (7-18); CREATININE 0.7 mg/dL (0.55-1.3); MAGNESIUM 2.3 mg/dL (1.8-2.4)
[2023-12-04 07:39] LABS: BILIRUBIN,TOTAL 1.4 mg/dL (0.2-1); TOT PROT 6.6 g/dl (6.4-8.2)
[2023-12-04] MEDS: POLYETHYLENE GLYCOL (HEALTHYLAX) 3350 17 GM PACKET PO SCH (10:34)
[2023-12-04] MEDS: ENOXAPARIN NA (PORCINE) 40 MG/0.4 ML DISP.SYRIN SQ SCH (10:34)
[2023-12-04 13:36] LABS: URINE APPEARANCE CLEAR; URINE BILIRUBIN NEGATIVE (NEGATIVE); URINE COLOR DK YELLOW; URINE GLUCOSE (UA) NEGATIVE (NEGATIVE); URINE KETONE 1+ (NEGATIVE); URINE LEUK ESTERASE NEGATIVE (NEGATIVE); URINE NITRITE NEGATIVE (NEGATIVE); URINE PROTEIN NEGATIVE (NEGATIVE); URINE UROBILINOGEN 4.0 E.U/dl mg/dL (0.2-1.0)
[2023-12-05 07:50] LABS: BASO % 0.5 % (0-2.0); EOS % 0.8 % (0-4.5); HEMATOCRIT 37.3 % (35.4-49); HEMOGLOBIN 12.8 GM/dL (11.7-16.9); LYMPH % 18.7 % (8-40); MCH 30.4 pg (25.7-33.7); MCHC 34.3 g/dl (32.0-35.9); MEAN CELL VOLUME 88.4 fl (80-96); MEAN PLT VOLUME 7.2 fl (7.5-11.1); MONO % 8.5 % (3.8-10.2); NEUT % 71.5 % (42.8-82.8); PLATELET COUNT 279 10^3/uL (134-434); RBC 4.21 M/mm3 (4.00-5.60); WHITE BLOOD COUNT 10.5 K/mm3 (4.0-10.0)
[2023-12-05 08:03] LABS: POTASSIUM 3.8 mmol/L (3.5-5.1)
[2023-12-05 08:05] LABS: CALCIUM 8.9 mg/dL (8.5-10.1)
[2023-12-05 08:06] LABS: ALBUMIN 3.4 g/dl (3.4-5.0); BLOOD UREA NITROGEN 11.3 mg/dL (7-18); MAGNESIUM 2.3 mg/dL (1.8-2.4)
[2023-12-05 08:09] LABS: CREATININE 0.6 mg/dL (0.55-1.3)
[2023-12-05 08:10] LABS: BILIRUBIN,TOTAL 1.6 mg/dL (0.2-1); TOT PROT 6.6 g/dl (6.4-8.2)
[2023-12-05 09:16] VITALS: RESP 18
[2023-12-05] MEDS ORDERED: ONDANSETRON 4 MG/2 ML VIAL IVPUSH PRN (15:12)
[2023-12-05] MEDS ORDERED: diphenhydrAMINE HCL 25 MG CAPSULE (FP) PO PRN (15:12)
[2023-12-05] MEDS: LACTATED RINGERS SOLUTION 1,000 ML IV SCH (15:20)
[2023-12-05] MEDS: oxyCODONE HCL 5 MG TABLET PO PRN (15:31)
[2023-12-05] MEDS: LIDOCAINE 5% TOPICAL PATCH TP SCH (17:11)
[2023-12-05] MEDS: CYCLOBENZAPRINE HCL 5 MG TABLET PO SCH (21:04)
[2023-12-05] MEDS: ACETAMINOPHEN 325 MG TABLET (FP) PO PRN (21:05)
[2023-12-05] MEDS: GABAPENTIN 100 MG CAPSULE PO SCH (21:06)
[2023-12-05] MEDS: DOCUSATE SODIUM 100 MG CAPSULE (FP) PO SCH (21:06)
[2023-12-05] MEDS: VALSARTAN 160 MG TABLET PO SCH (21:07)
[2023-12-05] MEDS: TIMOLOL 0.5% OPHTHALMIC SOL 5 ML BOTTLE OU SCH (21:08)
[2023-12-05] MEDS: DORZOLAMIDE 2% HCL OPHTHALMIC SOLUTION 10 ML BOTTLE OU SCH (21:09)
[2023-12-05] MEDS: LATANOPROST 0.005% OPHTH SOLN 2.5ML BOTTLE OU SCH (21:10)
[2023-12-05] MEDS ORDERED: LIDOCAINE PATCH REMOVAL MC SCH (22:00)
[2023-12-06] MEDS: LIDOCAINE PATCH REMOVAL MC SCH (05:55)
[2023-12-06] MEDS: POLYETHYLENE GLYCOL (HEALTHYLAX) 3350 17 GM PACKET PO SCH (10:01)
[2023-12-06] MEDS: ENOXAPARIN NA (PORCINE) 40 MG/0.4 ML DISP.SYRIN SQ SCH (10:01)
[2023-12-06] MEDS: PANTOPRAZOLE 40 MG TABLET PO SCH (10:02)
[2023-12-06] MEDS: FERROUS SO4 325 MG TABLET (FP) PO SCH (10:02)
[2023-12-06] MEDS: FOLIC ACID 1 MG TABLET (FP) PO SCH (10:02)
[2023-12-06] MEDS: oxyCODONE HCL 5 MG TABLET PO PRN (10:02)
[2023-12-06 10:12] LABS: BASO % 0.6 % (0-2.0); EOS % 1.8 % (0-4.5); HEMATOCRIT 35.6 % (35.4-49); HEMOGLOBIN 12.5 GM/dL (11.7-16.9); LYMPH % 21.8 % (8-40); MCH 30.8 pg (25.7-33.7); MCHC 35.2 g/dl (32.0-35.9); MEAN CELL VOLUME 87.5 fl (80-96); MEAN PLT VOLUME 7.3 fl (7.5-11.1); NEUT % 66.8 % (42.8-82.8); PLATELET COUNT 331 10^3/uL (134-434); RBC 4.07 M/mm3 (4.00-5.60); WHITE BLOOD COUNT 8.2 K/mm3 (4.0-10.0)
[2023-12-06 10:22] LABS: POTASSIUM 4.1 mmol/L (3.5-5.1)
[2023-12-06 10:25] LABS: CALCIUM 9.3 mg/dL (8.5-10.1)
[2023-12-06 10:26] LABS: BLOOD UREA NITROGEN 11.5 mg/dL (7-18)
[2023-12-06 10:29] LABS: CREATININE 0.6 mg/dL (0.55-1.3)
[2023-12-07] MEDS: ACETAMINOPHEN 1000 MG/100 ML BAG IVPB ONE (01:47)
[2023-12-07] MEDS: LIDOCAINE 5% TOPICAL PATCH TP ONE (10:27)
[2023-12-07] MEDS: LIDOCAINE PATCH REMOVAL MC ONE (22:24)
[2023-12-08 10:18] LABS: BASO % 0.7 % (0-2.0); EOS % 0.9 % (0-4.5); HEMOGLOBIN 11.6 GM/dL (11.7-16.9); LYMPH % 20.6 % (8-40); MCH 30.7 pg (25.7-33.7); MCHC 35.2 g/dl (32.0-35.9); MEAN CELL VOLUME 87.4 fl (80-96); MONO % 10.2 % (3.8-10.2); NEUT % 67.6 % (42.8-82.8); PLATELET COUNT 346 10^3/uL (134-434); RBC 3.77 M/mm3 (4.00-5.60); RDW 12.7 % (11.9-15.9); WHITE BLOOD COUNT 9.1 K/mm3 (4.0-10.0)
[2023-12-08 10:43] LABS: POTASSIUM 4.5 mmol/L (3.5-5.1)
[2023-12-08 10:47] LABS: ALBUMIN 2.9 g/dl (3.4-5.0); BLOOD UREA NITROGEN 12.4 mg/dL (7-18)
[2023-12-08 10:50] LABS: CREATININE 0.7 mg/dL (0.55-1.3)
[2023-12-08 10:51] LABS: TOT PROT 6.3 g/dl (6.4-8.2)
[2023-12-08 10:52] LABS: BILIRUBIN,TOTAL 0.6 mg/dL (0.2-1)
[2023-12-08] MEDS: CEFAZOLIN 1 GM in DEXTROSE 5%-WATER - 50 ML IVPB SCH (14:05)
[2023-12-09] MEDS: oxyCODONE HCL 5 MG TABLET PO PRN (10:49)
[2023-12-11 12:01] LABS: BASO % 1.3 % (0-2.0); EOS % 1.8 % (0-4.5); HEMATOCRIT 31.9 % (35.4-49); HEMOGLOBIN 11.2 GM/dL (11.7-16.9); LYMPH % 25.3 % (8-40); MCH 31.1 pg (25.7-33.7); MCHC 35.3 g/dl (32.0-35.9); MEAN CELL VOLUME 88.1 fl (80-96); MEAN PLT VOLUME 6.7 fl (7.5-11.1); MONO % 7.1 % (3.8-10.2); NEUT % 64.5 % (42.8-82.8); PLATELET COUNT 477 10^3/uL (134-434); RBC 3.62 M/mm3 (4.00-5.60); RDW 13.1 % (11.9-15.9); WHITE BLOOD COUNT 7.9 K/mm3 (4.0-10.0)
[2023-12-11 12:29] LABS: ALBUMIN 2.9 g/dl (3.4-5.0); CALCIUM 8.5 mg/dL (8.5-10.1)
[2023-12-11 12:30] LABS: BLOOD UREA NITROGEN 11.1 mg/dL (7-18)
[2023-12-11 12:32] LABS: CREATININE 0.7 mg/dL (0.55-1.3)
[2023-12-11 12:34] LABS: BILIRUBIN,TOTAL 0.3 mg/dL (0.2-1); TOT PROT 6.6 g/dl (6.4-8.2)
[2023-12-12 08:40] LABS: EOS % 2.2 % (0-4.5); HEMATOCRIT 32.7 % (35.4-49); HEMOGLOBIN 11.7 GM/dL (11.7-16.9); LYMPH % 26.4 % (8-40); MCH 31.1 pg (25.7-33.7); MCHC 35.7 g/dl (32.0-35.9); MEAN CELL VOLUME 87.2 fl (80-96); MEAN PLT VOLUME 6.8 fl (7.5-11.1); MONO % 6.9 % (3.8-10.2); NEUT % 63.5 % (42.8-82.8); PLATELET COUNT 481 10^3/uL (134-434); RBC 3.75 M/mm3 (4.00-5.60); RDW 12.9 % (11.9-15.9)
[2023-12-12 08:59] LABS: POTASSIUM 4.9 mmol/L (3.5-5.1)
[2023-12-12 09:05] LABS: CALCIUM 8.8 mg/dL (8.5-10.1); MAGNESIUM 2.4 mg/dL (1.8-2.4)
[2023-12-12 09:06] LABS: BLOOD UREA NITROGEN 10.8 mg/dL (7-18)
[2023-12-12 09:08] LABS: CREATININE 0.6 mg/dL (0.55-1.3)
[2023-12-12 09:10] LABS: TOT PROT 6.8 g/dl (6.4-8.2)
[2023-12-12] MEDS: oxyCODONE HCL 5 MG TABLET PO PRN (09:13)
[2023-12-12 09:20] LABS: BILIRUBIN,TOTAL 0.4 mg/dL (0.2-1)
[2023-12-12 09:24] LABS: ERYTHROCYTE SEDIMENTATION RATE 107 mm/hr (0-20)
[2023-12-13 14:07] VITALS: BP 119/66; PULSE 80; TEMP 98.4
== END 2023-12-13 14:25 | disposition home or self-care (01) | DRG 454 ==
LOC: JER 08:49 → JERBED 16:12 → J8W 18:31 → OBSVTOIN 12-02 12:54 → J4W 12-02 15:53 → J5S 12-05 14:08
PROVIDERS: ADMIT Internal Medicine; ATTEND Nurse Practitioner Family
PROC: 0SG0071 Fusion of Lumbar Vertebral Joint with Autologous Tissue Substitute, Posterior Approach, Posterior Column, Open Approach (ICD-10-PCS; 2023-12-02)
PROC: 0SG3071 Fusion of Lumbosacral Joint with Autologous Tissue Substitute, Posterior Approach, Posterior Column, Open Approach (ICD-10-PCS; 2023-12-02)
PROC: 0SB20ZZ Excision of Lumbar Vertebral Disc, Open Approach (ICD-10-PCS; 2023-12-02)
PROC: 01NB0ZZ Release Lumbar Nerve, Open Approach (ICD-10-PCS; 2023-12-02)
PROC: 00U20KZ Supplement Dura Mater with Nonautologous Tissue Substitute, Open Approach (ICD-10-PCS; 2023-12-02)
PROC: 4A11X4G Monitoring of Peripheral Nervous Electrical Activity, Intraoperative, External Approach (ICD-10-PCS; 2023-12-02)
PROC: 0SG00AJ Fusion of Lumbar Vertebral Joint with Interbody Fusion Device, Posterior Approach, Anterior Column, Open Approach (ICD-10-PCS; principal; 2023-12-02 08:00)
DX: M51.16 Intervertebral disc disorders with radiculopathy, lumbar region (principal); G97.41 Accidental puncture or laceration of dura during a procedure; K21.9 Gastro-esophageal reflux disease without esophagitis; R73.03 Prediabetes; I10 Essential (primary) hypertension; E78.5 Hyperlipidemia, unspecified; R50.9 Fever, unspecified; K80.80 Other cholelithiasis without obstruction; H40.9 Unspecified glaucoma; Y83.8 Other surgical procedures as the cause of abnormal reaction of the patient, or of later complication, without mention of misadventure at the time of the procedure
CPT/HCPCS: 0241U-QW; 36415; 71045-TC-FY; 72131-TC; 72148-TC; 76000-TC-FY; 80048; 80053; 81003; 83735; 85025; 85610; 85651; 85730; 86140; 86850; 86900; 86901; 87040; 87086; 87635; 93005; 93010; 94760; 97116-GP; 97161-GP; 99285-25; C1713; C1889; G0378; J0131